=== PATIENT | female | born 1935 | race Caucasian/White ===

== ENCOUNTER 2020-06-26 09:27 | Emergency (ER) | payer MEDICARE, BC, SELFPAY ==
--- NOTE | ~2020-06-26 | XR_ITS ---
XR chest 2V DATE: 06/26/2020 10:16 INDICATION: Shortness of breath. Right arm numbness. TECHNIQUE: PA and lateral views COMPARISON: None FINDINGS: There is mild cardiomegaly. There is aortic calcification and tortuosity. No hilar or media stinal enlargement is evident. No pulmonary infiltrate or consolidation, pleural effusion or pulmonar y vascular congestion or pneumothorax. Moderately large hiatal hernia. Diffuse osteopenia. IMPRESSION: Mild cardiomegaly No active pulmonary disease Reviewed, dictated and finalized at location A.
--- NOTE | ~2020-06-26 | CT_ITS ---
EXAMINATION: CTA chest PE protocol DATE: 06/26/2020 11:00 INDICATION: Shortness of breath TECHNIQUE: Computed tomography angiography (CTA) of the chest was performed with 100 mL Omnipaque-350 intravenous contrast timed to evaluate the pulmonary arteries. Coronal maximum intensity projection 3D-reconstructions were created by the technologist. Automated exposure control and iterative reconst ruction technique were employed. Exam dose: 403.82 mGy-cm total exam DLP. COMPARISON: 06/26/2022 view chest FINDINGS: There is extensive bilateral pulmonary embolism including large saddle embolism on the righ t and extensive thrombus extending into the right upper, middle and lower lobes. There is extensive l eft upper lobe, lingula as well as left lower lobe embolism. No pericardial or pleural effusion. There is inhomogeneous density and enlargement of the thyroid gland. No thoracic aortic aneurysm is evident. No hilar or mediastinal mass lesion or lymphadenopathy. Bilateral predominantly lower lobe dependent atelectasis and/or mild infiltrates. Moderately large hiatal hernia. Normal adrenal glands. IMPRESSION: Extensive bilateral pulmonary emboli I notified emergency room physician Dr. Crowell by telephone on 06/26/2020 at 1110 hours of the extens veto bilateral pulmonary emboli. Reviewed, dictated and finalized at [facility]. Reviewed, dictated and finalized at location A. IMPRESSION: Extensive bilateral pulmonary emboli I notified emergency room physician Dr. Crowell by telephone on 06/26/2020 at 11 10 hours of the extensive bilateral pulmonary emboli.
[2020-06-26 09:29] VITALS: BP 165/95; PULSE 114; RESP 18; TEMP 36.4; O2SAT 92
--- NOTE | 2020-06-26 09:34 | ECG_ITS ---
Measurements Intervals [address] Rate: 115 P: 97 GA: 171 QRS: -57 QRSD: 146 T: 59 QT: 356 QTc: 493 Interpretive Statements SINUS TACHYCARDIA VENTRICULAR PREMATURE COMPLEXES RIGHT BUNDLE BRANCH BLOCK LEFT ANTERIOR FASCICULAR BLOCK ABNORMAL ECG Electronically Signed On 06-26-2020 10:20:28 CDT by German Verma D.O.
[2020-06-26 09:37] VITALS: PULSE 119
[2020-06-26 09:39] VITALS: BP 162/97; PULSE 116; RESP 93; O2SAT 26
[2020-06-26 09:48] LABS: Basophils Absolute Auto 0.1 K/mm3 (0.0-0.1); Basophils Percent Auto 0.7 % (0.2-1.2); Eosinophils Absolute Auto 0.3 K/mm3 (0-0.3); Eosinophils Percent Auto 2.5 % (0-4.4); Hematocrit 38.2 % (37.0-47.0); Hemoglobin 12.5 g/dL (12.0-15.0); Immature Granulocyte Absolute 0.06 K/mm3 (0.00-0.031); Immature Granulocyte Percent A 0.6 % (0-0.5); Lymphocytes Absolute Auto 3.03 K/mm3 (0.9-3.2); Lymphocytes Percent Auto 28.8 % (18.3-44.2); Mean Corpuscular HGB Conc 32.7 g/dl (32-36); Mean Corpuscular Hemoglobin 29.5 pg (26-34); Mean Corpuscular Volume 90.1 fl (80-100); Mean Platelet Volume 10.3 fl (7.4-10.4); Monocytes Absolute Auto 0.6 K/mm3 (0.1-0.6); Monocytes Percent Auto 6.1 % (2.6-8.5); Neutrophils Absolute Auto 6.5 K/mm3 (1.3-6.7); Neutrophils Percent Auto 61.3 % (45.5-73.1); Platelet Count Result 260 k/mm3 (150-375); Red Blood Count 4.24 M/mm3 (4.2-5.4); Red Cell Distribution Width 14.5 % (11.5-14.5); White Blood Count 10.5 K/mm3 (4.5-10.0)
[2020-06-26 09:52] VITALS: BP 146/105; PULSE 108; RESP 18; O2SAT 95
[2020-06-26 10:02] LABS: Anion Gap 8 mmol/L (8-16); Blood Urea Nitrogen 12 mg/dL (7-17); Calcium 8.6 mg/dL (8.4-10.2); Carbon Dioxide 20 mmol/L (22-30); Chloride 110 mmol/L (98-107); Estimated CRCL calculation 53 ml/min; Estimated Glomerular Filt Rate > 60; Glucose 165 mg/dL (65-105); Potassium 3.5 mmol/L (3.4-5.0); Sodium 138 mmol/L (137-145)
[2020-06-26 10:41] LABS: Alveolar/Arterial O2 Gradient 86.7 mmHg; Base Excess ABG -1.6 mEq/l (+/-2.0); Carboxyhemoglobin 0.2 % THb (0-2.0); Device NASAL CANNULA; Fractional Inspired Oxygen 28 %; HCO3 ABG 21.8 mEq/l (22.0-26.0); Methemoglobin ABG 0.2 %THb (0-1.5); Modified Allen's Test Pass; Oxygen Content ABG 17.3 %vol (16.0-22.0); Oxygen Saturation ABG 95.5 % (95.0-100.0); PCO2 ABG 32.9 mmHg (35.0-45.0); PO2 ABG 74.1 mmHg (80.0-100.0); PO2 FiO2 Ratio Arterial Blood 2.65 %; Reduced Hemoglobin 5.6 %THb (0-5.0); Site Drawn LEFT RADIAL; Total Hemoglobin 13.1 g/dL (12.0-18.0); pH ABG 7.439 (7.350-7.450)
[2020-06-26 10:42] LABS: INR 1.1; Prothrombin Time 13.6 Seconds (11.1-14.7)
[2020-06-26 10:43] LABS: Partial Thromboplastin Time 24.7 SECONDS (22.3-36.8)
[2020-06-26 10:48] LABS: Alanine Aminotransferase 81 U/L (4-35); Albumin Level 3.8 g/dL (3.5-5.1); Alkaline Phosphatase 84 U/L (38-126); Aspartate Amino Transferase 83 U/L (14-36); Bilirubin,Total 1.1 mg/dL (0.2-1.3)
--- NOTE | 2020-06-26 11:00 | ED.SOB ---
HPI - SOB/Dyspnea General Chief Complaint: Shortness of Breath/Dyspnea <Chin Guillory PA-C - Last Filed: 06/26/20 12:43> Stated Complaint: SOB <Chin Guillory PA-C - Last Filed: 06/26/20 12:43> Time Seen by Provider: 06/26/20 10:12 <Chin Guillory PA-C - Last Filed: 06/26/20 12:43> Source: patient and family <Chin Guillory PA-C - Last Filed: 06/26/20 12:43> Mode of arrival: ambulatory <Chin Guillory PA-C - Last Filed: 06/26/20 12:43> Limitations: no limitations <Chin Guillory PA-C - Last Filed: 06/26/20 12:43> History of Present Illness HPI Narrative: Patient is a 84-year-old female who presents to emergency department for evaluation of dyspnea that began June 16 patient notes that she began to have her dyspnea at that time worse with activity and ambulation patient on arrival to emergency department is hypoxic denies chest pain or any pain or other symptoms specifically no URI symptoms only dyspnea which has been persistent since June 16. Patient has no past medical history has not seen a physician historically denies tobacco abuse. Patient resting comfortably in the room upon arrival <Chin Guillory PA-C - Last Filed: 06/26/20 12:43> Related Data Home Medications: Home Medications Medication Instructions Recorded Confirmed No Home Medications 06/26/20 06/26/20 <Chin Guillory PA-C - Last Filed: 06/26/20 12:43> Allergies/Adverse Reactions: Allergies Allergy/AdvReac Type Severity Reaction Status Date / Time No Known Allergies Allergy Verified 06/26/20 09:38 <Chin Guillory PA-C - Last Filed: 06/26/20 12:43> Review of Systems Review of Systems: All systems reviewed & are unremarkable except as noted in HPI and below <Chin Guillory PA-C - Last Filed: 06/26/20 12:43> [facility] Social History Social History: Social History Smoking status: Never smoker Gender identity (if verbalized by the patient): Female <Chin Guillory PA-C - Last Filed: 06/26/20 12:43> Exam Narrative: Exam Narrative: GENERAL: Well-appearing, well-nourished, and in no acute distress. HEAD: Normocephalic, atraumatic. EYES: PERRLA and EOMI. ENT: Nares clear, no rhinorrhea or epistaxis. Mucous membranes moist. Oropharynx without tonsillar hypertrophy exudate or other lesions. NECK: Supple. No adenopathy or masses. No carotid bruits or JVD CHEST: Clear to auscultation. No respiratory distress. No wheezes rales or rhonchi HEART: Tachycardic rate regular rhythm. No murmur heard. Normal peripheral pulses. ABDOMEN: Soft, nontender, nondistended, normal active bowel sounds. EXTREMITIES: Normal range of motion. No edema. SKIN: Warm, dry, no rash. NEURO: No focal deficits. Alert and oriented x3. PSYCH: Normal mood and affect. <Chin Guillory PA-C - Last Filed: 06/26/20 12:43> Course Course Emergency Course: Family after discussion with the interventionalists has decided to go with our washing machine installer will be transferred to facility where he can perform the procedure they had [id number] with his colleague patient hemodynamically stable at this time in no distress agreeing with the plan and will be transferred <Chin Guillory PA-C - Last Filed: 06/26/20 12:43> [employer]PERATOR/PA Physician Supervision Patient presenting for evaluation of shortness of breath, chest pain following recent flight from [place]. At the time of assessment, patient is tachycardic, no hypotension, hypoxemic placed on nasal cannula oxygenation at 2 L/min. Given recent travel history, very concerning for possible PE or COVID type symptoms. IV access obtained and labs are drawn. Laboratory results notable for troponin elevation. CT scan called to me by the radiologist Dr. Tavares who states that the patient has bilateral pulmonary emboli as well as a saddle pulmonary embolism. Patient reassesse
[2020-06-26 11:06] LABS: NT Pro B Type Natriuretic Pept 3670 PG/ML (5-100); Troponin I 0.393 ng/mL (0.000-0.034)
[2020-06-26] MEDS: HEPARIN SODIUM 5,000 UNITS/ML VIAL 7500 UNITS IV PUSH (11:19)
[2020-06-26] MEDS: HEPARIN SOD/D5W 100 UNITS/ML 25,000 UNITS/250 ML BAG 13 UNITS IV CONT (11:28)
[2020-06-26 11:31] LABS: Add Urine Microscopic? YES; Appearance Urine Clear (Clear); Bacteria Urine Trace /hpf; Bilirubin Urine Negative (Negative); Blood Urine Negative (Negative); Color Urine Yellow (Yellow); Glucose Urine UA Negative (Negative); Ketones Urine Trace mg/dL (Negative); Leukocyte Esterase Ur 3+ LEU/UL (Negative); Mucus Urine Few /lpf; Nitrate Urine Negative (Negative); Protein Urine 2+ mg/dL (Negative); Squamous Epithelial Cell Urine Many /hpf (Few); WBC Clumps Urine Present /HPF; WBC Urine >75 /hpf
[2020-06-26 11:32] LABS: Specific Grav Ur 1.034 (1.001-1.035)
[2020-06-26 12:12] VITALS: BP 162/104; PULSE 109; RESP 11; O2SAT 92
--- NOTE | 2020-06-26 12:49 | PM.CNCAR ---
Assessment and Plan Assessment and plan (1) Pulmonary emboli: Code(s): I26.99 - Other pulmonary embolism without acute cor pulmonale Status: Acute Assessment and Plan: Pt was found to have large pulmonary embolism. She was started on heparin drip. Pt will benefit from EKOS. She will be transferred to [facility] for further evaluation and treatment. Transfer will be coordinated by Dr. Tyson. (2) Hypoxemia: Code(s): R09.02 - Hypoxemia Status: Acute History of Present Illness History of Present Illness Consult date/time: 06/26/20 12:49 Mrs. Sanchez is a pleasant 84 y/o WF with no significant PMH who presented to [place] ER because of SOB. Pt states that she started to experience SOB on Jun 16 when she travelled to [place]. It was getting gradually worse and she decided to go to ER of [facility] for evaluation. Pt underwent CT of chest which showed large pulmonary embolism. She never had PE or DVT in the past. Pt states that she has not seen any physician for many years. Pt was seen and examined while in ER, chart reviewed, d/w ER physician, pt's family and pt's nurse. Reason For Visit: SOB Review of Systems Review of Systems: All systems reviewed & are unremarkable except as noted in HPI and below Constitutional: Constitutional: Reports as per HPI Eyes: Eyes: Reports as per HPI ENT: Reports system reviewed and no additional complaints, except as documented and Reports as per HPI Cardiovascular: Cardiovascular: Reports as per HPI and Denies chest pain Respiratory: Respiratory: Reports as per HPI and Reports dyspnea Gastrointestinal: Gastrointestinal: Reports as per HPI Genitourinary: Genitourinary: Reports as per HPI Musculoskeletal: Musculoskeletal: Reports as per HPI [facility] Social History Social History Smoking status: Never smoker Gender identity (if verbalized by the patient): Female Meds Home Medications and Allergies Home Medications Medication Instructions Recorded Confirmed Type No Home Medications 06/26/20 06/26/20 History Allergies Allergy/AdvReac Type Severity Reaction Status Date / Time No Known Allergies Allergy Verified 06/26/20 09:38 Vital Signs Vital Signs - 24 hr 06/26/20 09:29 06/26/20 09:37 06/26/20 09:39 Temperature 36.4 C L Pulse Rate 114 H 119 H 116 H Respiratory Rate 18 93 H Blood Pressure 165/95 H 162/97 H Pulse Oximetry 92 26 L 06/26/20 09:52 06/26/20 12:12 Temperature Pulse Rate 108 H 109 H Respiratory Rate 18 11 L Blood Pressure 146/105 H 162/104 H Pulse Oximetry 95 92 Exam Const: General: alert and awake; No acute distress HENMT: Head: normal to inspection and atraumatic Ears: hearing grossly normal bilaterally Face and sinus: normal facial exam Eyes: General: appearance normal, both eyes and all related structures Pupils: Equal, round and reactive pupils present EOM: EOMs intact bilaterally Neck: Neck: normal visual inspection and no JVD Chest: Chest palpation & inspection: normal inspection of the chest Resp: Effort & Inspection: normal respiratory effort and no respiratory distress Auscultation: clear to auscultation bilaterally Cardio: Jugular venous distension: no JVD Rate: regular rate Heart sounds: S1 normal heart sound present, S2 normal heart sound present and no murmurs GI: Inspection: normal to inspection GI Palp: Yes Soft to palpation, No Tenderness to palpation present (GI) and Yes No hepatosplenomegaly present Auscultation: normal bowel sounds Skin: General skin exam: normal color Neuro: Cranial nerves: Yes Equal, round and reactive pupils present Extrem: General: normal to inspection and no clubbing, cyanosis or edema Results Labs and Meds Result diagrams: 06/26/20 09:40 06/26/20 09:40 Lab results: Cardiac Enzymes 06/26/20 Range/Units
--- NOTE | 2020-06-26 12:53 | PC.NURSE ---
[facility] declined transfer [facility] accepted ETA 1400 Trip # [id number]
[2020-06-26 13:46] LABS: Troponin I 0.379 ng/mL (0.000-0.034)
[2020-06-26 13:47] VITALS: BP 157/97; PULSE 107; RESP 18; O2SAT 96
--- NOTE | 2020-06-26 14:18 | PC.NURSE ---
Patient transported [facility] at this time via [facility].
== END 2020-06-26 14:38 | disposition short-term general hospital (02) ==
PROVIDERS: Emergency Medicine Emergency Medical Services; Emergency Provider Emergency Medicine
DX: I26.99 Other pulmonary embolism without acute cor pulmonale (principal); R79.89 Other specified abnormal findings of blood chemistry; R09.02 Hypoxemia; N39.0 Urinary tract infection, site not specified
CPT/HCPCS: 36415; 36600; 51701; 71046; 71275; 80048; 80076; 81001; 82375; 82805; 83050; 83880; 84484; 85025; 85610; 85730; 87086; 93005; 96365; 96366; 96368; 99291; J0696; J1644; Q9967

== ENCOUNTER 2021-01-29 08:26 | Emergency (ER) | payer MEDICARE, BC, SELFPAY ==
[2021-01-29] VITALS (34 sets, daily range): BP systolic 144–182; BP diastolic 79–101; PULSE 52–87; RESP 11–20; TEMP 36.4; O2SAT 95–100
--- NOTE | ~2021-01-29 | US_ITS ---
EXAMINATION: US pelvic complete w TV DATE: 01/29/2021 10:22 INDICATION: Abnormal vaginal bleeding TECHNIQUE: Multiple transabdominal and endovaginal sonographic images of the pelvis were obtained. COMPARISON: None. FINDINGS: The uterus measures 8.1 x 3.8 x 5.3 cm. The endometrial complex measures 2.3 cm. There is a heterogeneous mass within the endometrial canal measuring up to 2.5 cm. There appears to be peripher al blood flow on some images. In addition, there is mobile echogenic material seen in the lower uteri ne segment passing into the endocervical canal.. The left ovary is not visualized however no left adn exal abnormality is seen. The right ovary measures 1.5 x 2.0 x 1.8 cm. There is normal vascular flow in the right ovary. There is no free fluid in the pelvis. IMPRESSION: 1. Thickened endometrial canal with heterogeneous mass. Finding could reflect polyp, malignancy, or h ematoma. Endometrial sampling is recommended. Reviewed, dictated and finalized at location B. IMPRESSION: 1. Thickened endometrial canal with heterogeneous mass. Finding could reflect p olyp, malignancy, or hematoma. Endometrial sampling is recommended.
[2021-01-29 08:53] LABS: Basophils Absolute Auto 0.1 K/mm3 (0.0-0.1); Basophils Percent Auto 0.9 % (0.2-1.2); Eosinophils Absolute Auto 0.3 K/mm3 (0-0.3); Eosinophils Percent Auto 3.7 % (0-4.4); Hematocrit 39.7 % (37.0-47.0); Hemoglobin 12.6 g/dL (12.0-15.0); Immature Granulocyte Absolute 0.02 K/mm3 (0.00-0.031); Immature Granulocyte Percent A 0.2 % (0-0.5); Lymphocytes Absolute Auto 3.56 K/mm3 (0.9-3.2); Lymphocytes Percent Auto 41.6 % (18.3-44.2); Mean Corpuscular HGB Conc 31.7 g/dl (32-36); Mean Corpuscular Hemoglobin 30.5 pg (26-34); Mean Corpuscular Volume 96.1 fl (80-100); Monocytes Absolute Auto 0.8 K/mm3 (0.1-0.6); Monocytes Percent Auto 8.8 % (2.6-8.5); Neutrophils Absolute Auto 3.8 K/mm3 (1.3-6.7); Neutrophils Percent Auto 44.8 % (45.5-73.1); Platelet Count Result 283 k/mm3 (150-375); Red Blood Count 4.13 M/mm3 (4.2-5.4); Red Cell Distribution Width 14.3 % (11.5-14.5); White Blood Count 8.6 K/mm3 (4.5-10.0)
[2021-01-29 09:02] LABS: Alanine Aminotransferase 23 U/L (4-35); Albumin Level 4.1 g/dL (3.5-5.1); Alkaline Phosphatase 85 U/L (38-126); Anion Gap 6 mmol/L (8-16); Aspartate Amino Transferase 31 U/L (14-36); Blood Urea Nitrogen 15 mg/dL (7-17); Calcium 8.7 mg/dL (8.4-10.2); Carbon Dioxide 25 mmol/L (22-30); Chloride 110 mmol/L (98-107); Estimated CRCL calculation 50 ml/min; Estimated Glomerular Filt Rate > 60; Glucose 95 mg/dL (65-105); Potassium 4.5 mmol/L (3.4-5.0); Sodium 141 mmol/L (137-145)
[2021-01-29 09:08] LABS: INR 0.9; Partial Thromboplastin Time 24.1 SECONDS (22.3-36.8); Prothrombin Time 12.4 Seconds (11.1-14.7)
--- NOTE | 2021-01-29 09:22 | PC.NURSE ---
Dr. Ji at bedside for pt assessment.
[2021-01-29 09:51] LABS: Add Urine Microscopic? NO; Appearance Urine Clear (Clear); Bilirubin Urine Negative (Negative); Blood Urine Negative (Negative); Color Urine Yellow (Yellow); Glucose Urine UA Negative (Negative); Ketones Urine Negative (Negative); Leukocyte Esterase Ur Negative LEU/UL (Negative); Nitrate Urine Negative (Negative); Protein Urine Negative (Negative); Specific Grav Ur 1.011 (1.001-1.035); Urobilinogen Urine Negative mg/dL (<2.0)
--- NOTE | 2021-01-29 10:32 | ED.GENADULT ---
HPI - General Adult General Chief complaint: GI Bleed Stated complaint: bloody stools Time Seen by Provider: 01/29/21 08:41 Source: patient Mode of arrival: ambulatory Limitations: no limitations History of Present Illness HPI narrative: This is an 85 year old female who presents for evaluation of possible vaginal bleeding vs hematuria. She noticed this morning she was passing large amounts of blood in the toilet when she was urinating. She thinks it may be coming from her vagina but she is not sure. She denies frequent urination, abdominal pain, dysuria. She denies having a bowel movement or passing clots. She was taking Eliquis for PE but her clinical leader stopped her Eliquis 6 days ago. She does take a full strength aspirin. Related Data Home Medications Medication Instructions Recorded Confirmed atorvastatin 40 mg tablet 40 mg PO DAILY 07/20/20 01/29/21 ferrous sulfate 325 mg (65 mg 325 mg PO DAILY 07/20/20 01/29/21 iron) tablet lisinopril 10 mg tablet 10 mg PO DAILY 07/20/20 01/29/21 metoprolol succinate 50 mg capsule 50 mg PO DAILY 07/20/20 01/29/21 sprinkle, ext. release 24 hr aspirin 325 mg tablet 325 mg PO DAILY 01/26/21 01/29/21 Allergies Allergy/AdvReac Type Severity Reaction Status Date / Time No Known Allergies Allergy Verified 01/29/21 08:36 Review of Systems Review of Systems: All systems reviewed & are unremarkable except as noted in HPI and below PMFSH Past Medical History Medical History (Updated 01/29/21 @ 12:29 by Charu Ji MD) High blood pressure Hx of blood clots in lung SOB (shortness of breath) Stroke Surgical History Surgical History FH: total knee replacement both History of appendectomy Family History Family History Father Heart disease Mother Heart disease Sibling Hypertension Social History Social History Smoking status: Never smoker Gender identity (if verbalized by the patient): Female Exam Const: General: no acute distress and alert Orientation/consciousness: patient oriented x3 Eyes: EOM: EOMs intact bilaterally Resp: Effort & Inspection: normal respiratory effort and no retractions Auscultation: clear to auscultation bilaterally Cardio: Rate: regular rate Rhythm: regular rhythm Heart sounds: no murmurs GI: GI Palp: Yes Soft to palpation, No Tenderness to palpation present (GI) and No Guarding due to palpation present (GI) Auscultation: normal bowel sounds : Speculum Exam - Vagina: vaginal bleeding (dark blood in vaginal vault, no clots) Speculum Exam - Cervix: Cervical os closed Back/Spine/Pelvis: Back: no CVA tenderness Skin: General skin exam: normal color Rashes: no rashes Neuro: General: patient oriented x3, moves all extremities and CN's II-XI intact bilaterally Psych: Mental Status: mental status grossly normal Affect: normal affect Course Reevaluation(s) Reevaluation #1: PAtient states she did not see any blood when she went to restroom . I reviewed labs and ultrasound with patient and family. They understand that her labs are unremarkable but she will need evaluation of abnormal pelvic ultrasound with gynecology. She is stable for discharge. Date: 01/29/21 Time: 12:24 Vital Signs Vital signs: Vital Signs Temperature 97.6 F 01/29/21 08:32 Pulse Rate 78 01/29/21 08:32 Respiratory Rate 18 01/29/21 08:32 Blood Pressure 182/93 H 01/29/21 08:32 Pulse Oximetry 99 01/29/21 08:32 Temperature 97.6 F 01/29/21 08:32 Pulse Rate 66 01/29/21 12:51 Respiratory Rate 18 01/29/21 12:51 Blood Pressure 169/82 H 01/29/21 12:51 Pulse Oximetry 99 01/29/21 12:51 Medical Decision Making Vital Signs Vital Signs: Vital Signs Temperature 97.6 F 01/29/21 08:32 Pulse Rate 78
== END 2021-01-29 12:52 | disposition home or self-care (01) ==
PROVIDERS: Emergency Provider General Practice; PCP Internal Medicine
DX: N93.9 Abnormal uterine and vaginal bleeding, unspecified (principal); R93.89 Abnormal findings on diagnostic imaging of other specified body structures; I10 Essential (primary) hypertension; Z86.73 Personal history of transient ischemic attack (TIA), and cerebral infarction without residual deficits; Z79.82 Long term (current) use of aspirin
CPT/HCPCS: 36415; 51701; 76830; 76856; 80053; 81003; 85025; 85610; 85730; 86850; 86900; 86901; 99284

== ENCOUNTER 2022-04-18 11:07 | Emergency (ER) | payer MEDICARE, BC, SELFPAY ==
[2022-04-18] VITALS (9 sets, daily range): BP systolic 149–185; BP diastolic 80–105; PULSE 80–96; RESP 16–20; TEMP 36.4; O2SAT 93–99
--- NOTE | ~2022-04-18 | CT_ITS ---
EXAMINATION: CTA chest PE protocol DATE: 04/18/2022 12:36 INDICATION: Shortness of breath, palpitations. History of pulmonary embolus. TECHNIQUE: Computed tomography angiography (CTA) of the chest was performed with 100 mL Omnipaque-350 intravenous contrast timed to evaluate the pulmonary arteries. Coronal maximum intensity projection 3D-reconstructions were created by the technologist. Automated exposure control and iterative reconst ruction technique were employed. Exam dose: 304.15 mGy-cm total exam DLP. COMPARISON: 06/26/2020 CT pulmonary scan FINDINGS: The examination is diagnostic, with bilateral saddle emboli can with bilateral upper lower lobe and middle lobe emboli. Thyroid goiter. No thoracic or aortic aneurysm or dissection is detected. There is cardiomegaly. No pericardial or pl eural effusion. No hilar or mediastinal mass lesion or lymphadenopathy. Large hiatal hernia. Normal morphology of the adrenal glands. IMPRESSION: Extensive bilateral pulmonary emboli including bilateral saddle emboli Dr. Tavares telephoned the report on 04/2022 1253 hours to emergency room physician Dr. Dallas. Reviewed, dictated and finalized at [facility]. Reviewed, dictated and finalized at location A. IMPRESSION: Extensive bilateral pulmonary emboli including bilateral saddle em boli Dr. Tavares telephoned the report on 04/2022 1253 hours to emergency room physicia n Dr. Dallas.
--- NOTE | 2022-04-18 11:09 | ECG_ITS ---
Measurements Intervals [place] Rate: 92 P: 86 GA: 172 QRS: -30 QRSD: 146 T: 58 QT: 395 QTc: 489 Interpretive Statements SINUS RHYTHM RIGHT BUNDLE BRANCH BLOCK ABNORMAL ECG Electronically Signed On 04-18-2022 15:16:01 CDT by German Verma D.O.
[2022-04-18 11:22] LABS: Basophils Absolute Auto 0.1 K/mm3 (0.0-0.1); Eosinophils Absolute Auto 0.2 K/mm3 (0-0.3); Eosinophils Percent Auto 2.2 % (0-4.4); Hematocrit 39.2 % (37.0-47.0); Hemoglobin 12.5 g/dL (12.0-15.0); Immature Granulocyte Absolute 0.02 K/mm3 (0.00-0.031); Immature Granulocyte Percent A 0.2 % (0-0.5); Lymphocytes Absolute Auto 1.72 K/mm3 (0.9-3.2); Lymphocytes Percent Auto 20.5 % (18.3-44.2); Mean Corpuscular HGB Conc 31.9 g/dl (32-36); Mean Corpuscular Hemoglobin 29.8 pg (26-34); Mean Corpuscular Volume 93.3 fl (80-100); Mean Platelet Volume 9.8 fl (7.4-10.4); Monocytes Absolute Auto 0.7 K/mm3 (0.1-0.6); Monocytes Percent Auto 8.6 % (2.6-8.5); Neutrophils Absolute Auto 5.7 K/mm3 (1.3-6.7); Neutrophils Percent Auto 67.5 % (45.5-73.1); Platelet Count Result 277 k/mm3 (150-375); Red Cell Distribution Width 14.4 % (11.5-14.5); White Blood Count 8.4 K/mm3 (4.5-10.0)
[2022-04-18 11:31] LABS: Alanine Aminotransferase 14 U/L (6-35); Albumin Level 4.3 g/dL (3.5-5.1); Alkaline Phosphatase 85 U/L (38-126); Anion Gap 4 mmol/L (8-16); Aspartate Amino Transferase 24 U/L (14-36); Bilirubin,Total 1.6 mg/dL (0.2-1.3); Blood Urea Nitrogen 13 mg/dL (7-17); Calcium 8.9 mg/dL (8.4-10.2); Carbon Dioxide 25 mmol/L (22-30); Chloride 109 mmol/L (98-107); Estimated CRCL calculation 44 ml/min; Estimated Glomerular Filt Rate 59; Glucose 107 mg/dL (65-110); Potassium 4.3 mmol/L (3.4-5.0); Sodium 138 mmol/L (137-145)
--- NOTE | 2022-04-18 12:17 | PC.NURSE ---
Pt not able to urinate at this time
--- NOTE | 2022-04-18 12:30 | ED.WEAKNESS ---
HPI - Weakness General Chief complaint: Weakness Stated complaint: weakness Time Seen by Provider: 04/18/22 11:56 Source: patient History of Present Illness HPI Narrative: Patient presents with nonspecific weakness. His first been feeling weak over the past few days. She describes it as a sensation of feeling like her legs are heavy and she feels like her heart rate jumps up with physical activity. Denies any chest pain or shortness of breath denies any lightheadedness or dizziness. Denies any recent nausea vomiting or diarrhea denies any abdominal pain. Reports she does feel not like she supposed to . She denies any urinary symptoms. She does report a history of PEs after a long travel and does take aspirin on a regular basis. Reports today symptoms feel different than her prior PE. Related Data Home Medications Medication Instructions Recorded Confirmed atorvastatin 40 mg tablet 40 mg PO DAILY 07/20/20 02/09/22 ferrous sulfate 325 mg (65 mg 325 mg PO DAILY 07/20/20 02/09/22 iron) tablet lisinopril 10 mg tablet 10 mg PO DAILY 07/20/20 02/09/22 metoprolol succinate 50 mg capsule 50 mg PO DAILY 07/20/20 02/09/22 sprinkle, ext. release 24 hr aspirin 325 mg tablet 81 mg PO DAILY 01/26/21 02/09/22 Allergies Allergy/AdvReac Type Severity Reaction Status Date / Time No Known Allergies Allergy Verified 04/18/22 11:33 Review of Systems Review of Systems: CONSTITUTIONAL: Denies fever, chills, or sweats. EYES: Denies visual changes, redness, or discharge. ENT: Denies rhinorrhea, congestion, sore throat, or otalgia. CARDIOVASCULAR: Denies chest pain, palpitations, or edema. RESPIRATORY: Denies cough or dyspnea. GASTROINTESTINAL: Denies abdominal pain, nausea, vomiting, or diarrhea. GENITOURINARY: Denies dysuria or hematuria. SKIN: Denies rash or itching. MUSCULOSKELETAL: Denies back pain, joint pain, or myalgia. NEUROLOGIC: Denies headache, numbness, dizziness, or weakness. PSYCHIATRIC: Denies anxiety or depression. All systems reviewed & are unremarkable except as noted in HPI and below PMFSH Past Medical History Medical History Heart attack High blood pressure History of pulmonary embolism Hx of blood clots in lung SOB (shortness of breath) Stroke Surgical History Surgical History FH: total knee replacement both History of appendectomy Family History Family History Father Heart disease Mother Heart disease Sibling Hypertension Social History Social History Smoking status: Never smoker Gender identity (if verbalized by the patient): Female Exam Narrative: GENERAL: Well-appearing, well-nourished, and in no acute distress. HEAD: Normocephalic, atraumatic. EYES: PERRLA and EOMI. ENT: Nares clear, no rhinorrhea or epistaxis. Mucous membranes moist. NECK: Supple. No masses. No JVD CHEST: Clear to auscultation. No respiratory distress. No wheezes rales or rhonchi HEART: Regular rate and rhythm. No murmur heard. Normal peripheral pulses. ABDOMEN: Soft, nontender, nondistended, normal active bowel sounds. EXTREMITIES: Normal range of motion. No edema. SKIN: Warm, dry, no rash. NEURO: No focal deficits. Alert and oriented x3. PSYCH: Normal mood and affect. Course Reevaluation(s) Reevaluation #1: Patient updated on work-up thus far. Patient does have bilateral saddle PEs overall looks clinically well. She is previously required thrombectomy and June 2020 at [facility]. Patient would likely benefit from similar procedure. We will reach out to the [facility] healthcare system for transfer. Patient is comfortable with transfer plan. BNP and troponin were added on as well as heparin drips. Date: 04/18/22 Time: 13:32 Reevaluation #2: Duncan
[2022-04-18 13:22] LABS: Mucus Urine Rare /lpf; RBC Urine 0-2 /hpf (0-2); Squamous Epithelial Cell Urine Many /hpf (Few); Transitional Epi Cells Urine Rare /hpf (None Seen); WBC Urine 16-20 /hpf
[2022-04-18 13:31] LABS: Appearance Urine Clear (Clear); Bilirubin Urine Negative (Negative); Blood Urine Negative (Negative); Color Urine Yellow (Yellow); Glucose Urine UA Negative (Negative); Ketones Urine Trace mg/dL (Negative); Leukocyte Esterase Ur 2+ LEU/UL (Negative); Nitrate Urine Negative (Negative); Protein Urine Negative (Negative); Urobilinogen Urine 0.2 mg/dL (<2.0); pH Urine 6.5 (5.0-9.0)
[2022-04-18 13:32] LABS: Add Urine Microscopic? YES
[2022-04-18] MEDS: HEPARIN SODIUM 5,000 UNITS/ML VIAL 5500 UNITS IV PUSH (13:43)
[2022-04-18] MEDS: HEPARIN SOD/D5W 100 UNITS/ML 25,000 UNITS/250 ML BAG 13 UNITS IV CONT (13:44)
[2022-04-18 14:30] LABS: NT Pro B Type Natriuretic Pept 1470 pg/mL (5-100)
[2022-04-18 14:40] LABS: Partial Thromboplastin Time 28.6 SECONDS (22.3-36.8); Prothrombin Time 12.8 Seconds (11.1-14.7)
[2022-04-18 14:56] LABS: SARS-CoV-2 RNA PCR Negative
--- NOTE | 2022-04-18 18:38 | PC.NURSE ---
ohara update 1641, eta 1830, update at 1808, eta 1930.
--- NOTE | 2022-04-18 19:45 | PC.NURSE ---
called [facility] for ETA update at 2015
--- NOTE | 2022-04-18 20:35 | PC.NURSE ---
[facility] here
== END 2022-04-18 20:51 | disposition short-term general hospital (02) ==
PROVIDERS: Emergency Medicine; Emergency Provider Emergency Medicine; PCP Internal Medicine
DX: I26.99 Other pulmonary embolism without acute cor pulmonale (principal); Z20.822 Contact with and (suspected) exposure to COVID-19; I25.2 Old myocardial infarction; I10 Essential (primary) hypertension; Z86.711 Personal history of pulmonary embolism; Z86.73 Personal history of transient ischemic attack (TIA), and cerebral infarction without residual deficits; Z96.653 Presence of artificial knee joint, bilateral; Z79.82 Long term (current) use of aspirin; I45.10 Unspecified right bundle-branch block
CPT/HCPCS: 36415; 71275; 80053; 81001; 83880; 84484; 85025; 85610; 85730; 87086; 87088; 93005; 96365; 96366; 99285; C9803; J1644; Q9967; U0003; U0005

== ENCOUNTER 2023-05-05 09:52 | Inpatient (IN) | payer MEDICARE, BC, SELFPAY ==
[2023-05-05] VITALS (29 sets, daily range): BP systolic 121–160; BP diastolic 52–92; PULSE 68–94; RESP 12–21; TEMP 36.2–37; O2SAT 95–100; BMI 31.1
--- NOTE | ~2023-05-05 | US_ITS ---
EXAMINATION: US biopsy liver DATE: 05/10/2023 13:28 INDICATION: Hepatic mass concerning for metastatic disease TECHNIQUE: The procedure including the risks and benefits was discussed with the patient. Risks discu ssed included bleeding and infection. The patient understood the risks and agreed to proceed. The sk in overlying the liver was prepped and draped in usual sterile fashion. Anesthetic was administered with 1% lidocaine subcutaneously. An 18 gauge core biopsy needle was advanced under continuous ultra sound observation to the lesion of interest. 3 core biopsy specimens were obtained. The needle was removed and the entry site was cleaned and dressed. Post procedure ultrasound demonstrated no hemorr jennifer. FINDINGS: Ultrasound images demonstrate an approximately 2.5 cm isoechoic to slightly hyperechoic mas s with hypoechoic halo in the caudal right hepatic lobe corresponds in size and location to the lesio n identified on prior CT. Subsequent images demonstrate the biopsy needle advanced through the mass. IMPRESSION: 1. Successful Ultrasound-guided biopsy of a 2.5 cm right hepatic mass. Reviewed, dictated and finalized at location A.
--- NOTE | ~2023-05-05 | CT_ITS ---
Clinical Indication: Cecal mass CT Scan of the Chest, Abdomen, and Pelvis with Contrast: Technique: Contiguous sections were acquired throughout the chest, abdomen, and pelvis after intraven ous administration of 100 cc of Omnipaque 350. Dose reduction technique was used on this scan by uti lizing automated exposure control and iterative reconstruction technique. The dose-length product (DL P) was 1029.64 mGy-cm. COMPARISON: 04/18/2022 Findings: Multiple small thyroid nodules are present, predominantly hypodense/cystic in appearance. There is no evidence of any significant mediastinal, hilar or axillary lymphadenopathy. The mediastin al soft tissues and vascular structures appear normal. Large hiatal hernia present, containing most o f the stomach. There is no evidence of pleural or pericardial effusion. The lungs are clear. No pulmonary nodules or infiltrates are noted. There is a 2.5 cm hypodense right hepatic lobe mass, consistent with metastasis (axial image 109). Th e spleen, pancreas, gallbladder, adrenals and kidneys are within normal limits. No evidence of aorti c aneurysm. No lymphadenopathy. Suspected ill-defined cecal mass measuring approximately 5.0 x 4.1 cm (coronal image 38). No bowel ob struction evident. No abscess or free air. Urinary bladder is unremarkable. No adnexal mass seen. No ascites. Impression: Suspected 5.0 x 4.1 cm cecal mass, as detailed above, which would be suspicious for adenocarcinoma. C onsider colonoscopy for tissue sampling, if not already performed. 2.5 cm right hepatic lobe mass, highly suspicious for metastasis. Consider tissue sampling to establi sh a histologic diagnosis, as clinically indicated. Large hiatal hernia, containing most of the stomach. Reviewed, dictated and finalized at location . Impression: Suspected 5.0 x 4.1 cm cecal mass, as detailed above, which would be suspicious for adenocarcinoma. Consider colonoscopy for tissue sampling, if not already p erformed. 2.5 cm right hepatic lobe mass, highly suspicious for metastasis. Consider tiss ue sampling to establish a histologic diagnosis, as clinically indicated. Large hiatal hernia, containing most of the stomach.
--- NOTE | 2023-05-05 10:23 | ED.GENADULT ---
HPI - General Adult General Chief complaint: Recheck/Abnormal Lab/Rx Stated complaint: Low HGB Time Seen by Provider: 05/05/23 10:13 Source: patient Mode of arrival: ambulatory Limitations: no limitations History of Present Illness HPI narrative: This is an 87-year-old female with PMH of PE, HLD who presents to the ED for evaluation of hemoglobin of 5.9 drawn by PCP today. She reports fatigue and general malaise. Denies any chest pain, shortness of breath, or hemoptysis. She does currently take Eliquis for PE diagnosed last year. States that she has had several years of intermittent bright red rectal bleeding with hemorrhoids in the past. Denies dark stools or melena. Denies any vomiting or hematemesis. She has been working with her PCP on possible iron deficiency but was taken off of her iron pills a couple of months ago. Denies any further complaints. Related Data Home Medications Medication Instructions Recorded Confirmed atorvastatin 40 mg tablet 40 mg PO DAILY 07/20/20 02/19/23 ferrous sulfate 325 mg (65 mg 325 mg PO DAILY 07/20/20 02/19/23 iron) tablet apixaban 5 mg tablet (Eliquis) 5 mg PO BID 05/03/22 02/19/23 metoprolol succinate 50 mg capsule 25 mg PO DAILY 05/03/22 02/19/23 sprinkle, ext. 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 Code status: Full code. Smoking status: Never smoker Second hand tobacco smoke exposure: No Alcohol intake: never Substance use: never Lack of Transportation: No Lack of Food: Never True Current Housing: I Have Housing Concerned About Future Housing: No Difficulty Paying Gas/Electric Bills: No Difficulty Paying for Meds: No Currently Unemployed: No Education: High School Diploma/GED Difficulty w/ Childcare or Family Care: No Spiritual care concerns: No Exam Narrative: GENERAL: Well-appearing, well-nourished, and in no acute distress. HEAD: Normocephalic, atraumatic. EYES: PERRLA and EOMI. ENT: Nares clear, no rhinorrhea or epistaxis. Mucous membranes moist. Oropharynx without tonsillar hypertrophy exudate or other lesions. NECK: Supple. No adenopathy or masses. CHEST: No respiratory distress. Clear to auscultation. No wheezes rales or rhonchi HEART: Regular rate and rhythm. No murmur heard. Normal peripheral pulses. ABDOMEN: Soft, nontender, nondistended, normal active bowel sounds. MSK: Normal range of motion. No edema. SKIN: Warm, dry, no rash. NEURO: Alert and oriented x3. No focal deficits. PSYCH: Normal mood and affect. Rectal exam performed with female RN rose grower present: Hemoccult test negative. External hemorrhoids noted. No bleeding. No pain with exam. Course Vital Signs Vital signs: Vital Signs Pulse Rate 80 05/05/23 10:00 Respiratory Rate 21 H 05/05/23 10:00 Blood Pressure 139/78 05/05/23 10:00 Pulse Oximetry 99 05/05/23 10:00 Temperature 98 F 05/05/23 17:09 Pulse Rate 83 05/05/23 17:09 Respiratory Rate 18 05/05/23 17:09 Blood Pressure 153/77 H 05/05/23 17:09 Pulse Oximetry 99 05/05/23 17:09 Oxygen Delivery Room Air 05/05/23 14:28
[2023-05-05 10:26] LABS: Basophils Absolute Auto 0.1 K/mm3 (0.0-0.1); Basophils Percent Auto 1.2 % (0.2-1.2); Eosinophils Absolute Auto 0.3 K/mm3 (0-0.3); Eosinophils Percent Auto 3.1 % (0-4.4); Hematocrit 21.2 % (37.0-47.0); Immature Granulocyte Absolute 0.02 K/mm3 (0.00-0.031); Immature Granulocyte Percent A 0.2 % (0-0.5); Lymphocytes Absolute Auto 1.79 K/mm3 (0.9-3.2); Lymphocytes Percent Auto 20.7 % (18.3-44.2); Mean Corpuscular HGB Conc 28.3 g/dl (32-36); Mean Corpuscular Hemoglobin 21.9 pg (26-34); Mean Corpuscular Volume 77.4 fl (80-100); Mean Platelet Volume 9.5 fl (7.4-10.4); Monocytes Absolute Auto 0.9 K/mm3 (0.1-0.6); Monocytes Percent Auto 10.8 % (2.6-8.5); Neutrophils Absolute Auto 5.5 K/mm3 (1.3-6.7); Platelet Count Result 441 k/mm3 (150-375); Red Blood Count 2.74 M/mm3 (4.2-5.4); Red Cell Distribution Width 17.5 % (11.5-14.5); White Blood Count 8.6 K/mm3 (4.5-10.0)
[2023-05-05 10:36] LABS: INR 1.2; Prothrombin Time 15.8 Seconds (11.1-14.7)
[2023-05-05 10:37] LABS: Partial Thromboplastin Time 28.9 SECONDS (22.3-36.8)
[2023-05-05 10:40] LABS: Alanine Aminotransferase 18 U/L (6-35); Albumin Level 3.6 g/dL (3.5-5.1); Alkaline Phosphatase 65 U/L (38-126); Anion Gap 7 mmol/L (8-16); Aspartate Amino Transferase 24 U/L (14-36); Bilirubin,Total 0.7 mg/dL (0.2-1.3); Blood Urea Nitrogen 14 mg/dL (7-17); Calcium 8.6 mg/dL (8.4-10.2); Carbon Dioxide 25 mmol/L (22-30); Chloride 106 mmol/L (98-107); Estimated CRCL calculation 54 ml/min; Estimated Glomerular Filt Rate > 60; Glucose 103 mg/dL (65-110); Potassium 4.3 mmol/L (3.4-5.0); Sodium 138 mmol/L (137-145)
[2023-05-05 10:57] LABS: Anisocytosis 2+ (NORMAL); Hypochromasia 1+ (NORMAL); Large Platelets Present; Microcytosis 2+ (NORMAL); Platelet Estimate Increased (Adequate)
[2023-05-05 10:59] LABS: Schistocytes None Seen (NORMAL)
[2023-05-05] MEDS: SODIUM CHLORIDE 0.9% IV 250 ML 30 ML IV CONT ×2 (12:20→16:14)
[2023-05-05 14:16] LABS: Ferritin 7.22 ng/mL (11.1-264)
--- NOTE | 2023-05-05 14:21 | PM.IMHP ---
H&P: HPI History of Present Illness Date/Time: 05/05/23 15:00 Chief Complaint: Abnormal labs. 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 She had a routine wellness visit in February and labs at that time showed that her hemoglobin had dropped from 12.5 to 9.1. Anemia studies were ordered and her iron level was elevated at 296 and she was told to stop taking her ferrous sulfate supplementation which she had been on since last fall. The last week or so she has become fatigued and weak and she had labs drawn yesterday which showed that her hemoglobin was 5.9 and she was directed to the ED. hemoglobin and hematocrit today were 6.0 in 21.2% respectively and she is being admitted in this setting for transfusion and further evaluation. Stool was brown and Hemoccult negative on rectal exam done in the ED; external hemorrhoids were noted. On rare occasions she will notice a small amount of bright red blood on the toilet tissue following a hard bowel movement but nothing of significance. She denies epistaxis, gingival bleeding, hemoptysis, hematemesis, hematuria, and melena. No recent change in diet. She denies diarrhea and if anything she has occasional constipation. No abdominal pain, epigastric pain, bloating, or belching. Review of Systems Review of Systems: Twelve systems were reviewed and are negative except for as per HPI. [facility] Past Medical History Medical History (Updated 05/05/23 @ 20:33 by Linn Kerr PA-C) Chronic anticoagulation Hyperlipidemia Hypertension Iron deficiency anemia Pulmonary embolism (06/26/20) June 2020 and April 2022. 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 Code status: Full code. Smoking status: Never smoker Second hand tobacco smoke exposure: No Alcohol intake: never Substance use: never Lack of Transportation: No Lack of Food: Never True Current Housing: I Have Housing Concerned About Future Housing: No Difficulty Paying Gas/Electric Bills: No Difficulty Paying for Meds: No Currently Unemployed: No Education: High School Diploma/GED Difficulty w/ Childcare or Family Care: No Spiritual care concerns: No Meds Home Medications and Allergies Home Medications Medication Instructions Recorded Confirmed Type atorvastatin 40 mg tablet 40 mg PO HS 07/20/20 05/05/23 History apixaban 5 mg tablet (Eliquis) 5 mg PO BID 05/03/22 05/05/23 History cyanocobalamin (vitamin B-12) 1,000 mcg PO DAILY 05/05/23 05/05/23 History 1,000 mcg tablet (Vitamin B-12) metoprolol succinate 25 mg 25 mg PO DAILY 05/05/23 05/05/23 History tablet,extended release 24 hr Allergies Allergy/AdvReac Type Severity Reaction Status Date / Time No Known Allergies Allergy Verified 05/05/23 10:06 Vital Signs Vital Signs - 24 hr 05/05/23 10:02 05/05/23 10:09 05/05/23 10:11 Temperature Pulse Rate 70 70 94 Respiratory Rate 12 Blood Pressure 139/78 131/52 L 138/68 Pulse Oximetry 99 Oxygen Delivery Room Air 05/05/23 10:13 05/05/23 12:13 05/05/23 12:29 Temperature 98.4 F 98.6 F Pulse Rate 91 94 73 Respiratory Rate 16 16 Blood Pressure 141/76 H 138/69 146/78 H Pulse Oximetry 100 98 Oxygen Delivery 07
--- NOTE | 2023-05-05 18:16 | ADMGEN ---
This patient, Leisa Sanchez, was admitted to 3 [facility] Surg Room 320-01. Patient/family oriented to hospital policies and general routines including ID bracelet, bed and alarms, visiting hours, pain management, procedures, bathroom and other care routines, personal items, smoking policy, room service/diet, and visiting hours. Information on how to activate the Rapid Response Team has been discussed. Patient/Family are encouraged to report perceived risks to care and to ask questions if they do not understand what they are told or what they should do.
[2023-05-05 20:12] LABS: Hematocrit 26.3 % (37.0-47.0)
[2023-05-05] MEDS: METOPROLOL SUCCINATE EXT REL 12.5 MG TABCR PO (21:36)
[2023-05-05] MEDS: ATORVASTATIN 40 MG TABLET PO (21:36)
[2023-05-06 05:53] VITALS: BP 129/61; PULSE 69; RESP 16; TEMP 36.1; O2SAT 97
[2023-05-06 07:20] LABS: Hematocrit 25.2 % (37.0-47.0); Hemoglobin 7.6 g/dL (12.0-15.0); Mean Corpuscular HGB Conc 30.2 g/dl (32-36); Mean Corpuscular Hemoglobin 24.3 pg (26-34); Mean Corpuscular Volume 80.5 fl (80-100); Mean Platelet Volume 9.7 fl (7.4-10.4); Platelet Count Result 382 k/mm3 (150-375); Red Blood Count 3.13 M/mm3 (4.2-5.4); Red Cell Distribution Width 18.2 % (11.5-14.5); White Blood Count 7.1 K/mm3 (4.5-10.0)
[2023-05-06 07:27] LABS: Anion Gap 4 mmol/L (8-16); Blood Urea Nitrogen 10 mg/dL (7-17); Calcium 8.2 mg/dL (8.4-10.2); Carbon Dioxide 27 mmol/L (22-30); Chloride 108 mmol/L (98-107); Estimated CRCL calculation 54 ml/min; Estimated Glomerular Filt Rate > 60; Glucose 92 mg/dL (65-110); Magnesium 2.3 mg/dL (1.6-2.3); Sodium 139 mmol/L (137-145)
[2023-05-06 08:21] VITALS: PULSE 76
[2023-05-06] MEDS: FERROUS SULFATE 325 MG TABLET DR PO ×2 (08:21→17:05)
[2023-05-06] MEDS: METOPROLOL SUCCINATE EXT REL 25 MG TABCR PO (08:21)
[2023-05-06] MEDS: CYANOCOBALAMIN 1,000 MCG TABLET 1000 MCG PO (08:21)
[2023-05-06 14:00] VITALS: BP 132/68; PULSE 77; RESP 18; TEMP 36.2; O2SAT 99
[2023-05-06 14:47] VITALS: BP 123/64; BP 132/68; BP 138/66
[2023-05-06 16:07] LABS: Hematocrit 28.4 % (37.0-47.0); Hemoglobin 8.5 g/dL (12.0-15.0)
--- NOTE | 2023-05-06 16:48 | WPDPN ---
Progress Note: A&P Assessment and Plan (1) Symptomatic anemia: Code(s): D64.9 - Anemia, unspecified Status: Acute (2) Iron deficiency anemia: Code(s): D50.9 - Iron deficiency anemia, unspecified Status: Acute (3) Chronic anticoagulation: Code(s): Z79.01 - retirement (current) use of anticoagulants Status: Acute (4) Hypertension: Code(s): I10 - Essential (primary) hypertension Status: Acute (5) Hyperlipidemia: Code(s): E78.5 - Hyperlipidemia, unspecified Status: Acute Plan The patient presented to the emergency department with symptomatic anemia after she was found to have a low hemoglobin on labs drawn yesterday for evaluation of fatigue. Labs, imaging, EKG, and all reports were personally reviewed. She had previously been on iron supplementations however her iron levels were elevated on labs done in February and she was told to stop taking ferrous sulfate. The last couple of weeks she has been feeling fatigued and her iron levels yesterday were less than 10 and she was profoundly anemic as above. She will be transfused 2 units packed red blood cells and will repeat H&H thereafter. Ferritin level pending and depending on that we would consider Venofer infusion. She is on chronic anticoagulation given to unprovoked and rather large pulmonary emboli, the last being in April 2022. Presumably she has occult GI blood loss though her stool was brown and Hemoccult negative on rectal exam today done in the ED. External hemorrhoids were noted though she reports that they very rarely bleed small amounts if and when she has to strain for a bowel movement. Hold apixaban for now. Check stool for occult blood. Dr. Wells has been consulted and his input is appreciated. She would probably benefit from GI referral as an outpatient for upper and lower endoscopy. Vital signs have been stable. Her home medications will be reviewed and resumed as appropriate. 05/06/2023 interval history; upon arrival patient hgb was 6 and patient was given 2 units of PRBC and her Hgb was up to 8 and repeat hgb this morining trended down to 7.6 concerning for on going bleeding, patient is chronically anticoagulated with Eliquis for chronic PE which is on hold, patient is clinically stable will repeat the hemoglobin, will be seen GI and Hematology and further recommendation to follow Subjective Date/time seen: 05/06/23 16:48 Interval history: Abnormal labs. 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 She had a routine wellness visit in February and labs at that time showed that her hemoglobin had dropped from 12.5 to 9.1. Anemia studies were ordered and her iron level was elevated at 296 and she was told to stop taking her ferrous sulfate supplementation which she had been on since last fall. The last week or so she has become fatigued and weak and she had labs drawn yesterday which showed that her hemoglobin was 5.9 and she was directed to the ED. hemoglobin and hematocrit today were 6.0 in 21.2% respectively and she is being admitted in this setting for transfusion and further evaluation. Stool was brown and Hemoccult negative on rectal exam done in the ED; external hemorrhoids were noted. On rare occasions she will notice a small amount of bright red blood on the toilet tissue following a hard bowel movement but nothing of significance. She denies epistaxis, gingival bleeding, hemoptysis, hematemesis, hematuria, and melena. No recent change in diet. She denies diarrhea and if anything she has occasional constipation. No abdominal pain, epigastric pain, bloating, or belching. 05/06/2023 interval history; upon arrival patient hgb was 6 and patient was given 2 units
[2023-05-06 20:00] VITALS: BP 124/64
[2023-05-06] MEDS: ATORVASTATIN 40 MG TABLET PO (20:28)
[2023-05-06 22:00] VITALS: BP 128/60; PULSE 81; RESP 20; TEMP 36.3; O2SAT 96
[2023-05-07] VITALS (8 sets, daily range): BP systolic 124–149; BP diastolic 60–76; PULSE 72–89; RESP 16–20; TEMP 36–36.6; O2SAT 97–98
[2023-05-07 07:12] LABS: Anion Gap 5 mmol/L (8-16); Blood Urea Nitrogen 11 mg/dL (7-17); Calcium 8.2 mg/dL (8.4-10.2); Carbon Dioxide 26 mmol/L (22-30); Chloride 107 mmol/L (98-107); Estimated CRCL calculation 55 ml/min; Estimated Glomerular Filt Rate > 60; Glucose 92 mg/dL (65-110); Magnesium 2.3 mg/dL (1.6-2.3); Potassium 3.7 mmol/L (3.4-5.0); Sodium 138 mmol/L (137-145)
[2023-05-07 07:14] LABS: Basophils Absolute Auto 0.1 K/mm3 (0.0-0.1); Basophils Percent Auto 1.4 % (0.2-1.2); Eosinophils Absolute Auto 0.4 K/mm3 (0-0.3); Eosinophils Percent Auto 5.5 % (0-4.4); Hematocrit 25.6 % (37.0-47.0); Hemoglobin 7.7 g/dL (12.0-15.0); Immature Granulocyte Absolute 0.03 K/mm3 (0.00-0.031); Immature Granulocyte Percent A 0.5 % (0-0.5); Lymphocytes Absolute Auto 1.46 K/mm3 (0.9-3.2); Lymphocytes Percent Auto 22.5 % (18.3-44.2); Mean Corpuscular HGB Conc 30.1 g/dl (32-36); Mean Corpuscular Hemoglobin 24.1 pg (26-34); Mean Platelet Volume 9.3 fl (7.4-10.4); Monocytes Absolute Auto 0.8 K/mm3 (0.1-0.6); Neutrophils Absolute Auto 3.8 K/mm3 (1.3-6.7); Neutrophils Percent Auto 58.1 % (45.5-73.1); Platelet Count Result 383 k/mm3 (150-375); Red Cell Distribution Width 18.6 % (11.5-14.5); White Blood Count 6.5 K/mm3 (4.5-10.0)
[2023-05-07] MEDS: METOPROLOL SUCCINATE EXT REL 25 MG TABCR PO (08:27)
[2023-05-07] MEDS: FERROUS SULFATE 325 MG TABLET DR PO ×2 (08:27→17:42)
[2023-05-07] MEDS: CYANOCOBALAMIN 1,000 MCG TABLET 1000 MCG PO (08:27)
[2023-05-07] MEDS: ATORVASTATIN 40 MG TABLET PO (20:45)
[2023-05-08 06:00] VITALS: BP 142/70; PULSE 77; RESP 16; TEMP 36.7; O2SAT 96
[2023-05-08 06:35] LABS: Basophils Absolute Auto 0.1 K/mm3 (0.0-0.1); Basophils Percent Auto 1.1 % (0.2-1.2); Eosinophils Absolute Auto 0.4 K/mm3 (0-0.3); Eosinophils Percent Auto 5.5 % (0-4.4); Hemoglobin 7.8 g/dL (12.0-15.0); Immature Granulocyte Absolute 0.04 K/mm3 (0.00-0.031); Immature Granulocyte Percent A 0.6 % (0-0.5); Lymphocytes Absolute Auto 1.43 K/mm3 (0.9-3.2); Mean Corpuscular Hemoglobin 24.4 pg (26-34); Mean Corpuscular Volume 81.3 fl (80-100); Mean Platelet Volume 9.3 fl (7.4-10.4); Monocytes Absolute Auto 0.8 K/mm3 (0.1-0.6); Monocytes Percent Auto 11.7 % (2.6-8.5); Neutrophils Absolute Auto 4.4 K/mm3 (1.3-6.7); Neutrophils Percent Auto 61.1 % (45.5-73.1); Platelet Count Result 378 k/mm3 (150-375); Red Cell Distribution Width 19.4 % (11.5-14.5); White Blood Count 7.2 K/mm3 (4.5-10.0)
[2023-05-08 06:44] LABS: Anion Gap 6 mmol/L (8-16); Blood Urea Nitrogen 12 mg/dL (7-17); Calcium 8.3 mg/dL (8.4-10.2); Carbon Dioxide 26 mmol/L (22-30); Chloride 108 mmol/L (98-107); Estimated CRCL calculation 55 ml/min; Estimated Glomerular Filt Rate > 60; Glucose 92 mg/dL (65-110); Magnesium 2.3 mg/dL (1.6-2.3); Potassium 3.8 mmol/L (3.4-5.0); Sodium 140 mmol/L (137-145)
[2023-05-08 08:00] VITALS: BP 135/74
[2023-05-08] MEDS: METOPROLOL SUCCINATE EXT REL 25 MG TABCR PO (09:28)
[2023-05-08] MEDS: CYANOCOBALAMIN 1,000 MCG TABLET 1000 MCG PO (09:29)
[2023-05-08] MEDS: FERROUS SULFATE 325 MG TABLET DR PO ×2 (09:29→15:53)
[2023-05-08 10:48] LABS: IFOB Positive Control Positive; Immunochemical Fecal Occult Bl Positive (N)
--- NOTE | 2023-05-08 13:20 | PCCCNOTE ---
On 05/08/23, the student, [Juany Waite], provided care and completed [facility] documentation on this patient. I have reviewed the student's documentation and agree with the findings.
[2023-05-08 14:00] VITALS: BP 135/74; PULSE 76; RESP 16; TEMP 36.2; O2SAT 99
--- NOTE | 2023-05-08 14:46 | WPDGICN ---
Assessment and Plan Assessment and plan (1) Iron deficiency anemia: Code(s): D50.9 - Iron deficiency anemia, unspecified Status: Acute Assessment and Plan: Patient with iron deficiency anemia. No obvious bleeding. But stool is confirmed to be Hemoccult positive. Patient has been on anticoagulation chronically for the last 2 years. Plan to hold Eliquis anticoagulation. Proceed with colonoscopy and EGD tomorrow after preparation today. Hopefully we can determine is safe to restart the anticoagulation. Likely patient will also need iron replacement to start after endoscopy is completed. Further recommendations may be given after endoscopy but if not definitive than small-bowel exam would be necessary and possible hematology evaluation. 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 HPI: Leisa Sanchez is a 87 year old female Reports fatigue over the last several weeks prompting her to be admitted to the hospital. She presented other family doctor blood count revealed significant anemia. Patient received 2units of blood and feels somewhat improved overnight. Iron indices reveal iron deficiency. Patient reports that several years ago she had a pulmonary embolus. She was placed on Eliquis. Eventually this was discontinued but she had a recurrent pulmonary embolus 1 year ago and is anticipated remain on Eliquis long time. Patient was found to be on iron and remained on this until February of this year when it was discontinued because her iron level was reported to be high. She did well until 2-3 weeks ago when she developed fatigue. This prompted blood count yesterday which showed profound anemia and for this reason patient was admitted to the hospital. Patient denies any obvious bleeding. Her bowel habits are normal. She has no nose bleeds. She has no bruising. No other bleeding reported. Family history noncontributory. Patient has remained on Eliquis as stated. Previous iron was stopped in february. After admission hospital iron indices are noted to be negative. In the ER patient's stool Hemoccult initially negative. Follow-up stool guaiac was positive after admission. Review of Systems Review of Systems: Review of systems noncontributory. [facility] Past Medical History Medical History (Updated 05/05/23 @ 20:33 by Linn eKrr PA-C) Chronic anticoagulation Hyperlipidemia Hypertension Iron deficiency anemia Pulmonary embolism (06/26/20) June 2020 and April 2022. 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 Code status: Full code. Smoking status: Never smoker Second hand tobacco smoke exposure: No Alcohol intake: never Substance use: never Lack of Transportation: No Lack of Food: Never True Current Housing: I Have Housing Concerned About Future Housing: No Difficulty Paying Gas/Electric Bills: No Difficulty Paying for Meds: No Currently Unemployed: No Education: High School Diploma/GED Difficulty w/ Childcare or Family Care: No Spiritual care concerns: No Meds Home Medications and Allergies Home Medications Medication Instructions Recorded Confirmed Type atorvastatin 40 mg tablet 40
[2023-05-08 15:09] LABS: Iron 17 ug/dL (37-170)
[2023-05-08 15:15] VITALS: BP 142/84; BP 143/75
[2023-05-08 15:17] VITALS: BP 142/84; BP 143/75
[2023-05-08 15:18] LABS: Percent Iron Saturation 4 % (20-50)
[2023-05-08] MEDS: PEG (High)/E-LYTE SOLN 4,000 ML BTL 4000 ML PO (15:53)
[2023-05-08 16:16] LABS: Folic Acid 15.7 ng/mL (2.76->20)
--- NOTE | 2023-05-08 16:24 | WPDPN ---
Progress Note: A&P Assessment and Plan (1) Symptomatic anemia: Code(s): D64.9 - Anemia, unspecified Status: Acute (2) Iron deficiency anemia: Code(s): D50.9 - Iron deficiency anemia, unspecified Status: Acute (3) Chronic anticoagulation: Code(s): Z79.01 - half-way (current) use of anticoagulants Status: Acute (4) Hypertension: Code(s): I10 - Essential (primary) hypertension Status: Acute (5) Hyperlipidemia: Code(s): E78.5 - Hyperlipidemia, unspecified Status: Acute Plan The patient presented to the emergency department with symptomatic anemia after she was found to have a low hemoglobin on labs drawn yesterday for evaluation of fatigue. Labs, imaging, EKG, and all reports were personally reviewed. She had previously been on iron supplementations however her iron levels were elevated on labs done in February and she was told to stop taking ferrous sulfate. The last couple of weeks she has been feeling fatigued and her iron levels yesterday were less than 10 and she was profoundly anemic as above. She will be transfused 2 units packed red blood cells and will repeat H&H thereafter. Ferritin level pending and depending on that we would consider Venofer infusion. She is on chronic anticoagulation given to unprovoked and rather large pulmonary emboli, the last being in April 2022. Presumably she has occult GI blood loss though her stool was brown and Hemoccult negative on rectal exam today done in the ED. External hemorrhoids were noted though she reports that they very rarely bleed small amounts if and when she has to strain for a bowel movement. Hold apixaban for now. Check stool for occult blood. Dr. Wells has been consulted and his input is appreciated. She would probably benefit from GI referral as an outpatient for upper and lower endoscopy. Vital signs have been stable. Her home medications will be reviewed and resumed as appropriate. 05/07/2023 interval history; upon arrival patient hgb was 6 and patient was given 2 units of PRBC and her Hgb was up to 8 and repeat hgb this morining trended down to 7.6 concerning for on going bleeding, patient is chronically anticoagulated with Eliquis for chronic PE which is on hold, patient is clinically stable will repeat the hemoglobin, will be seen GI and Hematology and further recommendation to follow Subjective Date/time seen: 05/08/23 16:24 Interval history: Abnormal labs. 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 She had a routine wellness visit in February and labs at that time showed that her hemoglobin had dropped from 12.5 to 9.1. Anemia studies were ordered and her iron level was elevated at 296 and she was told to stop taking her ferrous sulfate supplementation which she had been on since last fall. The last week or so she has become fatigued and weak and she had labs drawn yesterday which showed that her hemoglobin was 5.9 and she was directed to the ED. hemoglobin and hematocrit today were 6.0 in 21.2% respectively and she is being admitted in this setting for transfusion and further evaluation. Stool was brown and Hemoccult negative on rectal exam done in the ED; external hemorrhoids were noted. On rare occasions she will notice a small amount of bright red blood on the toilet tissue following a hard bowel movement but nothing of significance. She denies epistaxis, gingival bleeding, hemoptysis, hematemesis, hematuria, and melena. No recent change in diet. She denies diarrhea and if anything she has occasional constipation. No abdominal pain, epigastric pain, bloating, or belching. 05/07/2023 interval history; upon arrival patient hgb was 6 and patient was given 2 units
--- NOTE | 2023-05-08 16:29 | WPDPN ---
Progress Note: A&P Assessment and Plan (1) Symptomatic anemia: Code(s): D64.9 - Anemia, unspecified Status: Acute (2) Iron deficiency anemia: Code(s): D50.9 - Iron deficiency anemia, unspecified Status: Acute (3) Chronic anticoagulation: Code(s): Z79.01 - group home (current) use of anticoagulants Status: Acute (4) Hypertension: Code(s): I10 - Essential (primary) hypertension Status: Acute (5) Hyperlipidemia: Code(s): E78.5 - Hyperlipidemia, unspecified Status: Acute Plan The patient presented to the emergency department with symptomatic anemia after she was found to have a low hemoglobin on labs drawn yesterday for evaluation of fatigue. Labs, imaging, EKG, and all reports were personally reviewed. She had previously been on iron supplementations however her iron levels were elevated on labs done in February and she was told to stop taking ferrous sulfate. The last couple of weeks she has been feeling fatigued and her iron levels yesterday were less than 10 and she was profoundly anemic as above. She will be transfused 2 units packed red blood cells and will repeat H&H thereafter. Ferritin level pending and depending on that we would consider Venofer infusion. She is on chronic anticoagulation given to unprovoked and rather large pulmonary emboli, the last being in April 2022. Presumably she has occult GI blood loss though her stool was brown and Hemoccult negative on rectal exam today done in the ED. External hemorrhoids were noted though she reports that they very rarely bleed small amounts if and when she has to strain for a bowel movement. Hold apixaban for now. Check stool for occult blood. Dr. Wells has been consulted and his input is appreciated. She would probably benefit from GI referral as an outpatient for upper and lower endoscopy. Vital signs have been stable. Her home medications will be reviewed and resumed as appropriate. 05/08/2023 interval history; upon arrival patient hgb was 6 and patient was given 2 units of PRBC and her Hgb was up to 8 and repeat hgb this morining trended down to 7.8 concerning for on going bleeding, patient is chronically anticoagulated with Eliquis for chronic PE which is on hold, Patient never had colonoscopy or EGD patient was seen by GI today and recommeded the procedures which is scheduled for tomorrow, patient is clinically stable will repeat the hemoglobin, will be seen GI and Hematology and further recommendation to follow Subjective Date/time seen: 05/08/23 16:29 Interval history: Abnormal labs. 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 She had a routine wellness visit in February and labs at that time showed that her hemoglobin had dropped from 12.5 to 9.1. Anemia studies were ordered and her iron level was elevated at 296 and she was told to stop taking her ferrous sulfate supplementation which she had been on since last fall. The last week or so she has become fatigued and weak and she had labs drawn yesterday which showed that her hemoglobin was 5.9 and she was directed to the ED. hemoglobin and hematocrit today were 6.0 in 21.2% respectively and she is being admitted in this setting for transfusion and further evaluation. Stool was brown and Hemoccult negative on rectal exam done in the ED; external hemorrhoids were noted. On rare occasions she will notice a small amount of bright red blood on the toilet tissue following a hard bowel movement but nothing of significance. She denies epistaxis, gingival bleeding, hemoptysis, hematemesis, hematuria, and melena. No recent change in diet. She denies diarrhea and if anything she has occasional constipation. No abdominal pain,
[2023-05-08] MEDS: ATORVASTATIN 40 MG TABLET PO (21:13)
[2023-05-08 21:42] VITALS: BP 147/73; PULSE 86; RESP 18; TEMP 36.4; O2SAT 95
[2023-05-09] VITALS (10 sets, daily range): BP systolic 111–162; BP diastolic 51–84; PULSE 74–96; RESP 14–20; TEMP 36.2–37; O2SAT 96–100
[2023-05-09 06:26] LABS: Basophils Absolute Auto 0.1 K/mm3 (0.0-0.1); Basophils Percent Auto 1.3 % (0.2-1.2); Eosinophils Absolute Auto 0.4 K/mm3 (0-0.3); Eosinophils Percent Auto 4.4 % (0-4.4); Hematocrit 30.5 % (37.0-47.0); Hemoglobin 8.9 g/dL (12.0-15.0); Immature Granulocyte Absolute 0.07 K/mm3 (0.00-0.031); Immature Granulocyte Percent A 0.8 % (0-0.5); Lymphocytes Absolute Auto 2.25 K/mm3 (0.9-3.2); Lymphocytes Percent Auto 24.8 % (18.3-44.2); Mean Corpuscular HGB Conc 29.2 g/dl (32-36); Mean Corpuscular Hemoglobin 23.9 pg (26-34); Mean Corpuscular Volume 81.8 fl (80-100); Mean Platelet Volume 9.3 fl (7.4-10.4); Monocytes Absolute Auto 0.9 K/mm3 (0.1-0.6); Monocytes Percent Auto 9.6 % (2.6-8.5); Neutrophils Absolute Auto 5.4 K/mm3 (1.3-6.7); Neutrophils Percent Auto 59.1 % (45.5-73.1); Platelet Count Result 454 k/mm3 (150-375); Red Blood Count 3.73 M/mm3 (4.2-5.4); Red Cell Distribution Width 20.6 % (11.5-14.5); White Blood Count 9.1 K/mm3 (4.5-10.0)
[2023-05-09 06:53] LABS: Anion Gap 7 mmol/L (8-16); Blood Urea Nitrogen 11 mg/dL (7-17); Calcium 8.7 mg/dL (8.4-10.2); Carbon Dioxide 28 mmol/L (22-30); Chloride 105 mmol/L (98-107); Estimated CRCL calculation 54 ml/min; Estimated Glomerular Filt Rate > 60; Glucose 93 mg/dL (65-110); Magnesium 2.3 mg/dL (1.6-2.3); Potassium 3.5 mmol/L (3.4-5.0); Sodium 140 mmol/L (137-145)
[2023-05-09 06:55] LABS: Hypochromasia 1+ (NORMAL); Platelet Clumps Present; Platelet Estimate Increased (Adequate)
[2023-05-09 06:56] LABS: Anisocytosis 1+ (NORMAL); Macrocytosis 1+ (NORMAL); Ovalocytes 1+ (NORMAL); Poikilocytosis 1+ (NORMAL)
[2023-05-09 06:57] LABS: Schistocytes 1+ (NORMAL)
[2023-05-09] MEDS: METOPROLOL SUCCINATE EXT REL 25 MG TABCR PO (08:32)
[2023-05-09] MEDS: FERROUS SULFATE 325 MG TABLET DR PO ×2 (08:32→16:56)
[2023-05-09] MEDS: CYANOCOBALAMIN 1,000 MCG TABLET 1000 MCG PO (08:32)
--- NOTE | 2023-05-09 12:42 | WPDPN ---
Progress Note: A&P Assessment and Plan (1) Symptomatic anemia: Code(s): D64.9 - Anemia, unspecified Status: Acute (2) Iron deficiency anemia: Code(s): D50.9 - Iron deficiency anemia, unspecified Status: Acute (3) Chronic anticoagulation: Code(s): Z79.01 - senior care (current) use of anticoagulants Status: Acute (4) Hypertension: Code(s): I10 - Essential (primary) hypertension Status: Acute (5) Hyperlipidemia: Code(s): E78.5 - Hyperlipidemia, unspecified Status: Acute Plan The patient presented to the emergency department with symptomatic anemia after she was found to have a low hemoglobin on labs drawn yesterday for evaluation of fatigue. Labs, imaging, EKG, and all reports were personally reviewed. She had previously been on iron supplementations however her iron levels were elevated on labs done in February and she was told to stop taking ferrous sulfate. The last couple of weeks she has been feeling fatigued and her iron levels yesterday were less than 10 and she was profoundly anemic as above. She will be transfused 2 units packed red blood cells and will repeat H&H thereafter. Ferritin level pending and depending on that we would consider Venofer infusion. She is on chronic anticoagulation given to unprovoked and rather large pulmonary emboli, the last being in April 2022. Presumably she has occult GI blood loss though her stool was brown and Hemoccult negative on rectal exam today done in the ED. External hemorrhoids were noted though she reports that they very rarely bleed small amounts if and when she has to strain for a bowel movement. Hold apixaban for now. Check stool for occult blood. Dr. Wells has been consulted and his input is appreciated. She would probably benefit from GI referral as an outpatient for upper and lower endoscopy. Vital signs have been stable. Her home medications will be reviewed and resumed as appropriate. 05/09/2023 interval history; upon arrival patient hgb was 6 and patient was given 2 units of PRBC and her Hgb was up to 8 and repeat hgb this morining is 8.9 most likely due to hemoconcentration as patient is NPO for EGD and colonoscopy, concerning for on going bleeding, patient is chronically anticoagulated with Eliquis for chronic PE which is on hold, Patient never had colonoscopy or EGD patient was seen by GI today patient is scheduled for the procedures, Patient with very low iron, will give venofer 300mg, patient will be seen by food beverage server, patient is clinically stable will repeat the hemoglobin, will be seen GI and Hematology and further recommendation to follow. Subjective Date/time seen: 05/09/23 12:42 Interval history: Abnormal labs. 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 She had a routine wellness visit in February and labs at that time showed that her hemoglobin had dropped from 12.5 to 9.1. Anemia studies were ordered and her iron level was elevated at 296 and she was told to stop taking her ferrous sulfate supplementation which she had been on since last fall. The last week or so she has become fatigued and weak and she had labs drawn yesterday which showed that her hemoglobin was 5.9 and she was directed to the ED. hemoglobin and hematocrit today were 6.0 in 21.2% respectively and she is being admitted in this setting for transfusion and further evaluation. Stool was brown and Hemoccult negative on rectal exam done in the ED; external hemorrhoids were noted. On rare occasions she will notice a small amount of bright red blood on the toilet tissue following a hard bowel movement but nothing of significance. She denies epistaxis, gingival bleeding, hemoptysis, hematemes
[2023-05-09] MEDS: LACTATED RINGERS 1,000 ML 150 ML IV CONT (12:54)
--- NOTE | 2023-05-09 13:14 | WPDANESEPPF ---
Anes - Initial Pre Proc Eval Procedure: Operation Date: 05/09/23 14:15 Proposed Procedures p Esophagogastroduodenoscopy & Colonoscopy - Hussain Powers MD Date/Time: 05/09/23 13:14 Surgeon: Henry Odonnell MD Pre Op Diagnosis: Critical Low HDB/ Iron Deficiency Anemia Patient Data Age: 87 Gender: F Height: 1.68 m Weight: 86.5 kg Last Vital Signs Temp 97.2 F L 05/09/23 12:48 Pulse 82 05/09/23 12:48 Resp 20 05/09/23 12:48 BP 162/69 H 05/09/23 12:48 Pulse Ox 98 05/09/23 12:48 O2 Del Method Room Air 05/09/23 12:48 Allergies Allergy/AdvReac Type Severity Reaction Status Date / Time No Known Allergies Allergy Verified 05/09/23 12:46 Home Medications Medication Instructions Recorded Confirmed Type atorvastatin 40 mg tablet 40 mg PO HS 07/20/20 05/05/23 History apixaban 5 mg tablet (Eliquis) 5 mg PO BID 05/03/22 05/09/23 History cyanocobalamin (vitamin B-12) 1,000 mcg PO DAILY 05/05/23 05/05/23 History 1,000 mcg tablet (Vitamin B-12) metoprolol succinate 25 mg 25 mg PO DAILY 05/05/23 05/05/23 History tablet,extended release 24 hr Laboratory Tests 05/08/23 05/09/23 06:16 06:02 WBC 9.1 K/mm3 (4.5-10.0) RBC 3.73 L M/mm3 (4.2-5.4) Hgb 8.9 L g/dL (12.0-15.0) Hct 30.5 L % (37.0-47.0) MCV 81.8 fl (80-100) MCH 23.9 L pg (26-34) MCHC 29.2 L g/dl (32-36) RDW 20.6 H % (11.5-14.5) Plt Count 454 H k/mm3 (150-375) MPV 9.3 fl (7.4-10.4) Immature Gran % (Auto) 0.8 H % (0-0.5) Neut % (Auto) 59.1 % (45.5-73.1) Lymph % (Auto) 24.8 % (18.3-44.2) [place] % (Auto) 9.6 H % (2.6-8.5) Eos % (Auto) 4.4 % (0-4.4) Baso % (Auto) 1.3 H % (0.2-1.2) Lymph # (Auto) 2.25 K/mm3 (0.9-3.2) [place] # (Auto) 0.9 H K/mm3 (0.1-0.6) Eos # (Auto) 0.4 H K/mm3 (0-0.3) Baso # (Auto) 0.1 K/mm3 (0.0-0.1) Abs Immat Gran (auto) 0.07 H K/mm3 (0.00-0.031) Absolute Neuts (auto) 5.4 K/mm3 (1.3-6.7) Absolute Nucleated RBC 0.0 K/mm3 (0.0-0.012) Nucleated RBC % 0.0 % (0.0-0.2) Platelet Estimate Increased (Adequate) Clumped Platelets Present Hypochromasia 1+ (NORMAL) Poikilocytosis 1+ (NORMAL) Anisocytosis 1+ (NORMAL) Macrocytosis 1+ (NORMAL) Ovalocytes 1+ (NORMAL) Schistocytes 1+ (NORMAL) Sodium 140 mmol/L (137-145) Potassium 3.5 mmol/L (3.4-5.0) Chloride 105 mmol/L (98-107) Carbon Dioxide 28 mmol/L (22-30) Anion Gap 7 L mmol/L (8-16) BUN 11 mg/dL (7-17) Creatinine 0.70 mg/dL (0.7-1.0) Estim Creat Clear Calc 54 ml/min Estimated GFR > 60 (59 - ) Glucose 93 mg/dL (65-110) Calcium 8.7 mg/dL (8.4-10.2) Magnesium 2.3 mg/dL (1.6-2.3) Iron 17 L ug/dL (37-170) TIBC 390 ug/dL (261-462) % Saturation 4 L % (20-50) Vitamin B12 748.0 pg/mL (239-931) Folate 15.7 ng/mL (2.76->20) Patient hx anesthesia problems: none Family hx anesthesia problems: none Results Review: All pre-operative results and documents have been reviewed as part of the pre-operative evaluation. [facility] Past Medical History Medical History (Updated 05/05/23 @ 20:33 by Linn Kerr PA-C) Chronic anticoagulation Hyperlipidemia Hypertension Iron deficiency anemia Pulmonary embolism (06/26/20) June 2020 and April 2022. Stroke Surgical History Surgical History (Updated 05/05/23 @ 14:25 by Linn Kerr PA-C) History of appendectomy (1950) History of bilateral knee replacement (01/16/01) Family History Family History Father Heart disease Mother Heart disease Sibling Hypertension Social History Social History
--- NOTE | 2023-05-09 13:45 | SUR.OPER ---
EGD START: 1335; END: 1337. COLONOSCOPY START: 1345; END: 1357.
--- NOTE | 2023-05-09 17:17 | PM.CNGS ---
Assessment and Plan Assessment and plan (1) Mass of cecum: Code(s): K63.89 - Other specified diseases of intestine Status: Acute Assessment and Plan: I have reviewed the colonoscopy and notes from Dr. Powers. The patient has a large malignant-appearing mass in the cecum and ascending colon. I had a thorough discussion with the patient about the likelihood of this being cancer and the potential treatment options. I would like to get a CT chest/abdomen/pelvis tomorrow to assess for any signs of metastases. CEA level has also been ordered and is pending. If this appears to be an early stage cancer, then I would recommend proceeding with hand assisted laparoscopic right hemicolectomy. I discussed that with her anemia and chronic anticoagulation, coupled with her history of PE and no suspected colon cancer which increases hypercoagulable state, performing surgery sooner rather than later would be ideal. I will keep her on clear liquid diet tonight and have further discussions after the CT results tomorrow. Will potentially plan to keep patient in the hospital and proceed with right hemicolectomy during this hospitalization. Patient voiced her understanding. Also was able to discuss this with her 2 sons, 1 of which is her power of assistant city attorney. (2) Iron deficiency anemia: Qualifiers: Iron deficiency anemia type: chronic blood loss Qualified Code(s): D50.0 - Iron deficiency anemia secondary to blood loss (chronic) Code(s): D50.9 - Iron deficiency anemia, unspecified Status: Acute (3) Chronic anticoagulation: Code(s): Z79.01 - manager terminal (current) use of anticoagulants Status: Acute (4) History of pulmonary embolism: Code(s): Z86.711 - Personal history of pulmonary embolism Status: Acute History of Present Illness Consult details Consult date: 05/09/23 Reason for consult: other (Colon mass, anemia) Requesting physician: Hussain Powers MD Narrative: This is an 87-year-old woman who I am asked to see for a colon mass. She just underwent colonoscopy and EGD today by Dr. Powers. She was admitted to the hospital through the emergency department on 05/05/2023 for profound anemia. She has been dealing with some anemia for the past 2 years. She was on iron pills and this was helping but then her iron levels were too high and she was instructed to stop the iron. She had had any further investigation with a colonoscopy prior to this admission. She was not noticing any blood in her stool, but this was obscured while she was on iron. She has been more fatigued but denies any shortness of breath or weight loss. She denies any abdominal pain. EGD showed a large hiatal hernia but no signs of upper GI source of bleeding. Colonoscopy showed a malignant-appearing mass at the cecum and ascending colon. The patient is on long-term anticoagulation for a history of PE. She has been off of her anticoagulation since 05/05. Review of Systems Review of Systems: All systems reviewed & are unremarkable except as noted in HPI and below Constitutional: Constitutional: Denies chills, Reports fatigue and Denies fever(s) Eyes: Eyes: Denies change in vision ENT: Denies hearing loss, Denies neck pain and Denies sore throat Cardiovascular: Cardiovascular: Denies chest pain and Denies dyspnea Respiratory: Respiratory: Denies cough, Denies dyspnea and Denies wheezing Gastrointestinal: Gastrointestinal: Reports as per HPI Genitourinary: Genitourinary: Denies hematuria and Denies dysuria Musculoskeletal: Musculoskeletal: Denies arthralgias, Denies joint swelling and Denies neck pain Allergic/Immunologic: Allergic/Immunologic: Denies wheezing [facility] Past Medical History Medical History (Updated 05/09/23 @ 17:33 by Jd Malagon DO) Chronic anticoagulation Hyperlipidemia Hypertension Iron deficiency anemia Pulmonary embolism (06/26/20) June 2020 and April 2022. Stroke Surgical H
--- NOTE | 2023-05-09 17:41 | PDONCCN ---
HPI - Date of Consult Date/Time: 05/09/23 17:41 Requesting Physician: Henry Odonnell MD Primary Care Provider: Durga Aguayo, DO - Consult Narrative Reason for consult: Cecal mass Narrative: Leisa Sanchez is a 87 year old female whom I saw as inpatient consult for further management of cecal mass noted on colonoscopy performed today, 05/09/23. Patient has been feeling fatigued for past few months. Her PCP ordered CBC on 05/05/23 and hemoglobin was noted to be 5.9g/dL. Patient was admitted through ER for critical anemia. she has received PRBC transfusion and IV Iron infusion since then. Fecal blood was positive and colonoscopy was performed which showed fungating mass in he cecum. We are awaiting pathology findings. Patient also has history of Pulmonary embolism x2 (2019 and 2021). She was on Xarelto for 6 months in 2019 and after the recurrent PE in 2021 she was placed on eliquis and remained on Eliquis till the day of admission. Eliquis is held due to severe anemia and bleeding cecal mass. Oncology is asked for further management of cecal mass. Review of Systems - Review of Systems Patient states that she has been progressively feeling tired for past few months. She never has noted any blood in stool. She has chronically been on oral iron for anemia by PCP and had dark stool from iron. She denies any significant abdominal pain, nausea or vomiting. Denies significant weight loss. She has good appetite. There has been no significant change in stool pattern. She denies chest pain or dyspnea, cough or hemoptysis. Denies dizziness, vision changes, falls, syncope. Denies rash. Denies lymphadenopathy. [facility] Medical History: Medical History (Last Updated 05/05/23 @ 20:33 by Linn Kerr PA-C) Chronic anticoagulation Hyperlipidemia Hypertension Iron deficiency anemia Pulmonary embolism Onset Date: 06/26/20 and April 2022. Stroke Surgical History: Surgical History (Last Updated 05/05/23 @ 14:25 by Linn Kerr PA-C) History of appendectomy Onset Date: 1950 History of bilateral knee replacement Onset Date: 01/16/01 Family History: Family History (Last Reviewed 05/05/23 @ 14:25 by Linn Kerr PA-C) Father Heart disease Mother Heart disease Sibling Hypertension - Social History Social History: Social History (Last Reviewed 05/05/23 @ 20:33 by Linn Kerr PA-C) Alcohol Use: Alcohol intake: never Substance Use: Substance use: never Others: Spiritual care concerns: No Smoking Status: Smoking status: Never smoker Second hand tobacco smoke exposure: No Social Determinants of Health: Has the Lack of Transportation Kept You From Medical Appointments or From Getting Medications?: No Within the Past 12 Months, Were You Worried Whether Your Food Would Run Out Before You Got Money to Buy More?: Never True What is Your Housing Situation Today?: I Have Housing Are You Worried That in the Next 2 Months, You May Not Have Your Own Housing to Live In?: No Do You Have Trouble Paying Your Heating Or Electricity Bill?: No Do You Have Trouble Paying For Medicines?: No Are You Currently Unemployed and Looking for Work?: No Highest Level of Education Completed: High School Diploma/GED Do You Have Trouble With Childcare or the Care of a Family Member?: No Exam - Vital Signs Vital Signs - 24 hr 05/08/23 21:42 05/09/23 06:00 05/09/23 08:00 Temperature 36.4 C L 37.0 C 36.8 C Pulse Rate 86 75 78 Respiratory Rate 18 14 16 Blood Pressure 147/73 H 123/51 L 125/59 L Pulse Oximetry 95 98 99 Oxygen Delivery 05/09/23 08:31 05/09/23 08:31 05/09/23 08:00 Temperature Pulse Rate Respiratory Rate Blood Pressure 142/68 H 129/66 Pulse Oximetry Oxygen Delivery Room Air 05/09/23 12:48 05/09/23 14:02 05/09/23 14:12 Temperature 36.2 C L Pulse Rate 82 7
[2023-05-09] MEDS: ATORVASTATIN 40 MG TABLET PO (20:21)
[2023-05-10 03:33] LABS: Carcinoembryonic Antigen 3.2 ng/mL (0.0-3.0)
[2023-05-10 06:00] VITALS: BP 143/72; PULSE 79; RESP 18; TEMP 36.1; O2SAT 97
[2023-05-10 06:07] LABS: Basophils Absolute Auto 0.1 K/mm3 (0.0-0.1); Eosinophils Absolute Auto 0.3 K/mm3 (0-0.3); Eosinophils Percent Auto 4.6 % (0-4.4); Hemoglobin 7.9 g/dL (12.0-15.0); Immature Granulocyte Absolute 0.03 K/mm3 (0.00-0.031); Immature Granulocyte Percent A 0.4 % (0-0.5); Lymphocytes Absolute Auto 1.25 K/mm3 (0.9-3.2); Lymphocytes Percent Auto 17.9 % (18.3-44.2); Mean Corpuscular HGB Conc 29.3 g/dl (32-36); Mean Corpuscular Hemoglobin 24.2 pg (26-34); Mean Corpuscular Volume 82.8 fl (80-100); Mean Platelet Volume 9.3 fl (7.4-10.4); Monocytes Absolute Auto 0.8 K/mm3 (0.1-0.6); Monocytes Percent Auto 11.9 % (2.6-8.5); Neutrophils Absolute Auto 4.5 K/mm3 (1.3-6.7); Neutrophils Percent Auto 64.2 % (45.5-73.1); Platelet Count Result 351 k/mm3 (150-375); Red Blood Count 3.26 M/mm3 (4.2-5.4); Red Cell Distribution Width 21.2 % (11.5-14.5)
[2023-05-10 06:26] LABS: Anion Gap 3 mmol/L (8-16); Blood Urea Nitrogen 8 mg/dL (7-17); Calcium 8.2 mg/dL (8.4-10.2); Carbon Dioxide 27 mmol/L (22-30); Chloride 107 mmol/L (98-107); Estimated CRCL calculation 62 ml/min; Estimated Glomerular Filt Rate > 60; Glucose 86 mg/dL (65-110); Magnesium 2.1 mg/dL (1.6-2.3); Potassium 3.6 mmol/L (3.4-5.0); Sodium 137 mmol/L (137-145)
--- NOTE | 2023-05-10 07:21 | WPDANESPN ---
Anes - Prog Note Post-Op Date/Time: 05/10/23 07:21 Cardiovascular status: normal Respiratory status: normal Airway patency: baseline Mental status: baseline Post-Op hydration status: normal Vital Signs: Last Vital Signs Temp 96.9 F L 05/10/23 06:00 Pulse 79 05/10/23 06:00 Resp 18 05/10/23 06:00 BP 143/72 H 05/10/23 06:00 Pulse Ox 97 05/10/23 06:00 O2 Del Method Room Air 05/09/23 20:00 Pain Score (VAS): 0/10 I/O: Intake & Output 05/09/23 05/09/23 05/10/23 15:59 23:59 07:59 Intake Total 315 0 400 Balance 315 0 400 Laboratory Tests 05/10/23 05:51 05/10/23 05:51 05/09/23 05/10/23 06:00 05:51 WBC 7.0 RBC 3.26 L Hgb 7.9 L Hct 27.0 L MCV 82.8 MCH 24.2 L MCHC 29.3 L RDW 21.2 H Plt Count 351 MPV 9.3 Immature Gran % (Auto) 0.4 Neut % (Auto) 64.2 Lymph % (Auto) 17.9 L [place] % (Auto) 11.9 H Eos % (Auto) 4.6 H Baso % (Auto) 1.0 Lymph # (Auto) 1.25 [place] # (Auto) 0.8 H Eos # (Auto) 0.3 Baso # (Auto) 0.1 Abs Immat Gran (auto) 0.03 Absolute Neuts (auto) 4.5 Absolute Nucleated RBC 0.0 Nucleated RBC % 0.0 Platelet Estimate Pending Schistocytes Pending Sodium 137 Potassium 3.6 Chloride 107 Carbon Dioxide 27 Anion Gap 3 L BUN 8 Creatinine 0.60 L Estim Creat Clear Calc 62 Estimated GFR > 60 Glucose 86 Calcium 8.2 L Magnesium 2.1 Carcinoembryonic Ag 3.2 H Post-procedural complaints: none Patient Feedback: Patient satisfied with anesthetic care.
[2023-05-10 07:36] LABS: Platelet Estimate Adequate (Adequate); Poikilocytosis 2+ (NORMAL)
[2023-05-10 07:37] LABS: Acanthocytes 1+ (NORMAL); Hypochromasia 1+ (NORMAL); Schistocytes 1+ (NORMAL)
[2023-05-10 07:38] LABS: Anisocytosis 1+ (NORMAL)
--- NOTE | 2023-05-10 07:44 | WPDGIPROGNO ---
Progress Note: A&P Assessment and Plan (1) Colonic mass: Code(s): K63.89 - Other specified diseases of intestine Status: Acute Assessment and Plan: Mass at the cecum and ascending colon with malignant appearance. Histology pending. Agree with CT scan to assess for any metastases. Hopefully this can be resected during this admission. Final path report pending. (2) Iron deficiency anemia: Qualifiers: Iron deficiency anemia type: chronic blood loss Qualified Code(s): D50.0 - Iron deficiency anemia secondary to blood loss (chronic) Code(s): D50.9 - Iron deficiency anemia, unspecified Status: Acute Assessment and Plan: Patient with iron deficiency anemia because of colon mass along with anticoagulation. Anticoagulation to be held until after resection accomplished. (3) Chronic anticoagulation: Code(s): Z79.01 - custodial (current) use of anticoagulants Status: Acute Assessment and Plan: Hold anticoagulation for now. Restart after surgery. (4) History of pulmonary embolism: Code(s): Z86.711 - Personal history of pulmonary embolism Status: Acute Subjective Date/time seen: 05/10/23 07:44 Interval history: Patient alert comfortable this morning. She had opportunity to talk to surgery. CT scan to be performed. Await final path report. anticipate surgical resection during this admission. Review of Systems Review of Systems: Review of systems noncontributory. Exam Narrative: Physical exam reveals patient to be alert. Vital signs stable. HEENT exam reveals no icterus. Lungs are clear. Heart without murmur. Abdomen bowel sounds present soft nontender. Objective Data Vital Signs Vital Signs: Vital Signs - 24 hr 05/09/23 08:00 05/09/23 08:31 05/09/23 08:31 Temperature 98.3 F Pulse Rate 78 Respiratory Rate 16 Blood Pressure 125/59 L 142/68 H 129/66 Pulse Oximetry 99 Oxygen Delivery 05/09/23 08:00 05/09/23 12:48 05/09/23 14:02 Temperature 97.2 F L Pulse Rate 82 78 Respiratory Rate 20 19 Blood Pressure 162/69 H 111/67 Pulse Oximetry 98 96 Oxygen Delivery Room Air Room Air Room Air 05/09/23 14:12 05/09/23 14:22 05/09/23 16:02 Temperature 97.4 F L Pulse Rate 80 74 90 Respiratory Rate 20 20 16 Blood Pressure 138/73 159/84 H 124/83 Pulse Oximetry 100 100 98 Oxygen Delivery Room Air Room Air 05/09/23 21:06 05/09/23 21:07 05/09/23 21:06 Temperature 98.5 F Pulse Rate 77 77 76 Respiratory Rate 18 Blood Pressure 148/75 H 148/75 H 150/78 H Pulse Oximetry 99 99 97 Oxygen Delivery 05/09/23 21:07 05/09/23 20:00 05/10/23 06:00 Temperature 96.9 F L Pulse Rate 96 79 Respiratory Rate 18 Blood Pressure 131/70 143/72 H Pulse Oximetry 98 97 Oxygen Delivery Room Air Intake/Output Intake/Output: Intake & Output 05/07/23 05/08/23 05/09/23 05/10/23 23:59 23:59 23:59 23:59 Intake Total 1530 1960 1115 400 Output Total 1000 1100 Balance 580 789 8952 400 Meds/Results Medications: Active Medications Generic Name Dose Route Start Last Admin Trade Name Freq PRN Reason Stop Dose Admin Acetaminophen 650 mg 05/05/23 14:28 Acetaminophen 325 Mg Tablet PO Q6H PRN Mild Pain (1-3) or Fever Atorvastatin Calcium 40 mg 05/05/23 21:00 05/09/23 20:21 Atorvastatin 40 Mg Tablet PO 40 mg HS NEMESIO Administration Cyanocobalamin 1,000 mcg 05/06/23 09:00 05/09/23 08:32 Cyanocobalamin 1,000 Mcg Tablet PO 1,000 mcg DAILY NEMESIO Administration Ferrous Sulfate 325 mg 05/06/23 09:00 05/09/23 16:56 Ferrous Sulfate [address] PO 325 mg BID NEMESIO Administration Metoprolol Succinate 25 mg 05/06/23 09:00 05/09/23 08:32 Metoprolol Succinate Ext Rel 25 Mg Tabcr PO 25 mg DAILY NEMESIO Administration Labs Labs: Laboratory Results - last 24 hr 05/09/23 05/10/23 06:00 05:51 WBC 7.0 RBC 3.26 L Hgb 7.9
[2023-05-10 08:00] VITALS: BP 141/55; PULSE 88; RESP 18; TEMP 36.8; O2SAT 97
[2023-05-10 08:09] VITALS: BP 130/69; BP 148/69
[2023-05-10 09:13] VITALS: PULSE 89
[2023-05-10] MEDS: METOPROLOL SUCCINATE EXT REL 25 MG TABCR PO (09:13)
[2023-05-10] MEDS: CYANOCOBALAMIN 1,000 MCG TABLET 1000 MCG PO (09:13)
[2023-05-10] MEDS: FERROUS SULFATE 325 MG TABLET DR PO ×2 (09:13→16:40)
--- NOTE | 2023-05-10 12:12 | PM.PNGS ---
Progress Note: A&P Assessment and Plan (1) Mass of cecum: Code(s): K63.89 - Other specified diseases of intestine Status: Acute Assessment and Plan: I reviewed the CT and discussed the findings with the patient and her son. She has a 2.5 cm mass in the right lobe of the liver that is consistent with metastatic disease. This certainly makes treatment more complex given these findings. Will arrange for CT-guided biopsy of liver mass to confirm whether this is metastatic or other benign disease. If this is a solitary area of metastases, this could be potentially resected at the same time as colon resection. I would have to refer the patient to [facility] if this were to be attempted. Will await biopsy results and further discussion with Oncology. 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 No pain. No bleeding. Exam GI: Inspection: non-distended GI Palp: Yes Soft to palpation, No Tenderness to palpation present (GI) and No Guarding due to palpation present (GI) Percussion: Yes normal to percussion Auscultation: normal bowel sounds Objective Data Vital Signs Vital Signs: Vital Signs - 24 hr 05/09/23 12:48 05/09/23 14:02 05/09/23 14:12 Temperature 36.2 C L Pulse Rate 82 78 80 Respiratory Rate 20 19 20 Blood Pressure 162/69 H 111/67 138/73 Pulse Oximetry 98 96 100 Oxygen Delivery Room Air Room Air Room Air 05/09/23 14:22 05/09/23 16:02 05/09/23 21:06 Temperature 36.3 C L Pulse Rate 74 90 77 Respiratory Rate 20 16 Blood Pressure 159/84 H 124/83 148/75 H Pulse Oximetry 100 98 99 Oxygen Delivery Room Air 05/09/23 21:07 05/09/23 21:06 05/09/23 21:07 Temperature 36.9 C Pulse Rate 77 76 96 Respiratory Rate 18 Blood Pressure 148/75 H 150/78 H 131/70 Pulse Oximetry 99 97 98 Oxygen Delivery 05/09/23 20:00 05/10/23 06:00 05/10/23 08:00 Temperature 36.1 C L 36.8 C Pulse Rate 79 88 Respiratory Rate 18 18 Blood Pressure 143/72 H 141/55 H Pulse Oximetry 97 97 Oxygen Delivery Room Air 05/10/23 08:09 05/10/23 08:09 05/10/23 09:13 Temperature Pulse Rate 89 Respiratory Rate Blood Pressure 148/69 H 130/69 Pulse Oximetry Oxygen Delivery Intake/Output Intake/Output: Intake & Output 05/07/23 05/08/23 05/09/23 05/10/23 23:59 23:59 23:59 23:59 Intake Total 1530 1960 1115 640 Output Total 1000 1100 Balance 288 290 1781 640 Meds/Results Medications: Active Medications Generic Name Dose Route Start Last Admin Trade Name Timaq PRN Reason Stop Dose Admin Acetaminophen 650 mg 05/05/23 14:28 Acetaminophen 325 Mg Tablet PO Q6H PRN Mild Pain (1-3) or Fever Atorvastatin Calcium 40 mg 05/05/23 21:00 05/09/23 20:21 Atorvastatin 40 Mg Tablet PO 40 mg HS NEMESIO Administration Cyanocobalamin 1,000 mcg 05/06/23 09:00 05/10/23 09:13 Cyanocobalamin 1,000 Mcg Tablet PO 1,000 mcg DAILY NEMESIO Administration Ferrous Sulfate 325 mg 05/06/23 09:00 05/10/23 09:13 Ferrous Sulfate [address] PO 325 mg BID NEMESIO Administration Metoprolol Succinate 25 mg 05/06/23 09:00 05/10/23 09:13 Metoprolol Succinate Ext Rel 25 Mg Tabcr PO 25 mg DAILY NEMESIO Administration Radiology Results: ITS Impressions Chest/Abdomen/Pelvis CT 05/10/23 08:26 Impression: Suspected 5.0 x 4.1 cm cecal mass, as detailed above, which would be suspicious for adenocarcinoma. C
[2023-05-10 13:48] VITALS: BP 144/75; PULSE 83; RESP 16; TEMP 36.3; O2SAT 97
--- NOTE | 2023-05-10 14:22 | PCCCNOTE ---
On 05/10/23, the student, [Em Waite], provided care and completed [facility] documentation on this patient. I have reviewed the student's documentation and agree with the findings.
--- NOTE | 2023-05-10 15:45 | WPDPN ---
Progress Note: A&P Assessment and Plan (1) Symptomatic anemia: Code(s): D64.9 - Anemia, unspecified Status: Acute (2) Iron deficiency anemia: Qualifiers: Iron deficiency anemia type: chronic blood loss Qualified Code(s): D50.0 - Iron deficiency anemia secondary to blood loss (chronic) Code(s): D50.9 - Iron deficiency anemia, unspecified Status: Acute (3) Chronic anticoagulation: Code(s): Z79.01 - prison (current) use of anticoagulants Status: Acute (4) Hypertension: Code(s): I10 - Essential (primary) hypertension Status: Acute (5) Hyperlipidemia: Code(s): E78.5 - Hyperlipidemia, unspecified Status: Acute Plan The patient presented to the emergency department with symptomatic anemia after she was found to have a low hemoglobin on labs drawn yesterday for evaluation of fatigue. Labs, imaging, EKG, and all reports were personally reviewed. She had previously been on iron supplementations however her iron levels were elevated on labs done in February and she was told to stop taking ferrous sulfate. The last couple of weeks she has been feeling fatigued and her iron levels yesterday were less than 10 and she was profoundly anemic as above. She will be transfused 2 units packed red blood cells and will repeat H&H thereafter. Ferritin level pending and depending on that we would consider Venofer infusion. She is on chronic anticoagulation given to unprovoked and rather large pulmonary emboli, the last being in April 2022. Presumably she has occult GI blood loss though her stool was brown and Hemoccult negative on rectal exam today done in the ED. External hemorrhoids were noted though she reports that they very rarely bleed small amounts if and when she has to strain for a bowel movement. Hold apixaban for now. Check stool for occult blood. Dr. Wells has been consulted and his input is appreciated. She would probably benefit from GI referral as an outpatient for upper and lower endoscopy. Vital signs have been stable. Her home medications will be reviewed and resumed as appropriate. 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 Subjective Date/time seen: 05/10/23 15:45 Interval history: The patient presented to the emergency department with symptomatic anemia after she was found to have a low hemoglobin on labs drawn yesterday for evaluation of fatigue. Labs, imaging, EKG, and all reports were personally reviewed. She had previously been on iron supplementations however her iron levels were elevated on labs done in February and she was told to stop taking ferrous sulfate. The last couple of weeks she has been feeling fatigued and her iron levels yesterday were less than 10 and she was profoundly anemic as above. She will be transfused 2 units packed red blood cells and will repeat H&H thereafter. Ferritin level pending and depending on that we would consider Venofer infusion. She is on chronic anticoagulation given to unprovoked and rather large pulmonary emboli, the last being in April 2022. Presumably she has occult GI blood loss though her stool was
[2023-05-10] MEDS: ATORVASTATIN 40 MG TABLET PO (20:18)
[2023-05-10 21:30] VITALS: BP 142/72; PULSE 93; RESP 14; TEMP 37.2; O2SAT 97
[2023-05-11 06:00] VITALS: BP 128/58; PULSE 80; RESP 14; TEMP 37.3; O2SAT 96
[2023-05-11 07:23] LABS: Basophils Absolute Auto 0.1 K/mm3 (0.0-0.1); Basophils Percent Auto 1.2 % (0.2-1.2); Eosinophils Absolute Auto 0.3 K/mm3 (0-0.3); Eosinophils Percent Auto 4.5 % (0-4.4); Hematocrit 27.2 % (37.0-47.0); Hemoglobin 7.9 g/dL (12.0-15.0); Immature Granulocyte Absolute 0.03 K/mm3 (0.00-0.031); Immature Granulocyte Percent A 0.4 % (0-0.5); Lymphocytes Absolute Auto 1.18 K/mm3 (0.9-3.2); Mean Corpuscular Hemoglobin 23.9 pg (26-34); Mean Corpuscular Volume 82.4 fl (80-100); Mean Platelet Volume 9.1 fl (7.4-10.4); Monocytes Absolute Auto 0.9 K/mm3 (0.1-0.6); Monocytes Percent Auto 12.2 % (2.6-8.5); Neutrophils Absolute Auto 4.5 K/mm3 (1.3-6.7); Neutrophils Percent Auto 64.7 % (45.5-73.1); Nucleated Red Blood Cells Perc 0.3 % (0.0-0.2); Platelet Count Result 327 k/mm3 (150-375); Red Cell Distribution Width 21.7 % (11.5-14.5)
[2023-05-11 07:34] LABS: Anion Gap 5 mmol/L (8-16); Blood Urea Nitrogen 10 mg/dL (7-17); Calcium 8.3 mg/dL (8.4-10.2); Carbon Dioxide 27 mmol/L (22-30); Chloride 107 mmol/L (98-107); Estimated CRCL calculation 47 ml/min; Estimated Glomerular Filt Rate > 60; Glucose 88 mg/dL (65-110); Magnesium 2.1 mg/dL (1.6-2.3); Potassium 3.6 mmol/L (3.4-5.0); Sodium 139 mmol/L (137-145)
[2023-05-11 07:45] LABS: Hypochromasia 1+ (NORMAL); Platelet Estimate Adequate (Adequate)
[2023-05-11 07:46] LABS: Anisocytosis 2+ (NORMAL); Poikilocytosis 1+ (NORMAL); Schistocytes None Seen (NORMAL)
[2023-05-11 08:52] VITALS: PULSE 92
[2023-05-11] MEDS: CYANOCOBALAMIN 1,000 MCG TABLET 1000 MCG PO (08:52)
[2023-05-11] MEDS: METOPROLOL SUCCINATE EXT REL 25 MG TABCR PO (08:52)
[2023-05-11] MEDS: FERROUS SULFATE 325 MG TABLET DR PO (08:52)
--- NOTE | 2023-05-11 10:44 | PM.PNGS ---
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 Liver biopsy still pending. H/H remain stable. OK to discharge from surgical standpoint. Resume anticoagulation at Hem/Onc discretion. Will refer patient to Dr. Panchal, Colorectal Surgeon at [facility] for further evaluation and possible combined treatment of liver mass and colon cancer. Follow up with me as needed. (2) Liver mass: Code(s): R16.0 - Hepatomegaly, not elsewhere classified Status: Acute (3) Iron deficiency anemia: Qualifiers: Iron deficiency anemia type: chronic blood loss Qualified Code(s): D50.0 - Iron deficiency anemia secondary to blood loss (chronic) Code(s): D50.9 - Iron deficiency anemia, unspecified Status: Acute (4) Chronic anticoagulation: Code(s): Z79.01 - terminal computer operator (current) use of anticoagulants Status: Acute Subjective Subjective Date/Time Seen: 05/11/23 10:44 Interval history: Doing well after liver biopsy yesterday. No signs of hematochezia or melena. Tolerating diet. Exam GI: Inspection: non-distended GI Palp: Yes Soft to palpation, No Tenderness to palpation present (GI) and No Guarding due to palpation present (GI) Auscultation: normal bowel sounds Objective Data Vital Signs Vital Signs: Vital Signs - 24 hr 05/10/23 13:48 05/10/23 21:30 05/10/23 20:00 Temperature 36.3 C L 37.2 C Pulse Rate 83 93 Respiratory Rate 16 14 Blood Pressure 144/75 H 142/72 H Pulse Oximetry 97 97 Oxygen Delivery Room Air 05/11/23 06:00 05/11/23 08:52 Temperature 37.3 C Pulse Rate 80 92 Respiratory Rate 14 Blood Pressure 128/58 L Pulse Oximetry 96 Oxygen Delivery Intake/Output Intake/Output: Intake & Output 05/08/23 05/09/23 05/10/23 05/11/23 23:59 23:59 23:59 23:59 Intake Total 1960 1115 1330 990 Output Total 1100 Balance 860 1115 1330 990 Meds/Results Medications: Active Medications Generic Name Dose Route Start Last Admin Trade Name Freq PRN Reason Stop Dose Admin Acetaminophen 650 mg 05/05/23 14:28 Acetaminophen 325 Mg Tablet PO Q6H PRN Mild Pain (1-3) or Fever Atorvastatin Calcium 40 mg 05/05/23 21:00 05/10/23 20:18 Atorvastatin 40 Mg Tablet PO 40 mg HS NEMESIO Administration Cyanocobalamin 1,000 mcg 05/06/23 09:00 05/11/23 08:52 Cyanocobalamin 1,000 Mcg Tablet PO 1,000 mcg DAILY NEMESIO Administration Ferrous Sulfate 325 mg 05/06/23 09:00 05/11/23 08:52 Ferrous Sulfate [address] PO 325 mg BID NEMESIO Administration Metoprolol Succinate 25 mg 05/06/23 09:00 05/11/23 08:52 Metoprolol Succinate Ext Rel 25 Mg Tabcr PO 25 mg DAILY NEMESIO Administration Radiology Results: ITS Impressions Chest/Abdomen/Pelvis CT 05/10/23 08:26 Impression: Suspected 5.0 x 4.1 cm cecal mass, as detailed above, which would be suspicious for adenocarcinoma. Consider colonoscopy for tissue sampling, if not already performed. 2.5 cm right hepatic lobe mass, highly suspicious for metastasis. Consider tissue sampling to establish a histologic diagnosis, as clinically indicated. Large hiatal hernia, containing most of the stomach. Liver Biopsy Ultrasound 05/10/23 14:17 IMPRESSION: 1. Successful Ultrasound-guided biopsy of a 2.5 cm right hepatic mass. Labs Labs: Laboratory Results - last 24 hr 05/11/23 06:51 WBC 7.0 RBC 3.30 L Hgb 7.9 L Hct 27.2 L MCV 82.4 MCH 23.9 L MCHC 29.0 L RDW 21.7 H Plt Count 327 MPV 9.1 Immature Gran % (Auto) 0.4 Neut % (Auto) 64.7 Lymph % (Auto) 17.0 L [place] % (Auto) 12.2 H Eos % (Auto) 4.5 H Baso % (Auto) 1.2 Lymph # (Auto) 1.18 [place] # (Auto) 0.9 H Eos # (Auto) 0.3 Baso # (Auto) 0.1 Abs Immat Gran (auto) 0.03 Absolute Neuts (auto) 4.5 Absolute Nucleated RBC
--- NOTE | 2023-05-11 11:29 | PM.DS ---
DS: Admitting Diagnosis Discharge Date 05/11/2023 Admitting Diagnosis Abnormal lab DS: Discharge Diagnosis Discharge Diagnosis (1) Symptomatic anemia: Code(s): D64.9 - Anemia, unspecified Status: Acute (2) Iron deficiency anemia: Qualifiers: Iron deficiency anemia type: chronic blood loss Qualified Code(s): D50.0 - Iron deficiency anemia secondary to blood loss (chronic) Code(s): D50.9 - Iron deficiency anemia, unspecified Status: Acute (3) Chronic anticoagulation: Code(s): Z79.01 - ferry terminal supervisor (current) use of anticoagulants Status: Acute (4) Hypertension: Code(s): I10 - Essential (primary) hypertension Status: Acute (5) Hyperlipidemia: Code(s): E78.5 - Hyperlipidemia, unspecified Status: Acute Plan The patient presented to the emergency department with symptomatic anemia after she was found to have a low hemoglobin on labs drawn yesterday for evaluation of fatigue. Labs, imaging, EKG, and all reports were personally reviewed. She had previously been on iron supplementations however her iron levels were elevated on labs done in February and she was told to stop taking ferrous sulfate. The last couple of weeks she has been feeling fatigued and her iron levels yesterday were less than 10 and she was profoundly anemic as above. She will be transfused 2 units packed red blood cells and will repeat H&H thereafter. Ferritin level pending and depending on that we would consider Venofer infusion. She is on chronic anticoagulation given to unprovoked and rather large pulmonary emboli, the last being in April 2022. Presumably she has occult GI blood loss though her stool was brown and Hemoccult negative on rectal exam today done in the ED. External hemorrhoids were noted though she reports that they very rarely bleed small amounts if and when she has to strain for a bowel movement. Hold apixaban for now. Check stool for occult blood. Dr. Wells has been consulted and his input is appreciated. She would probably benefit from GI referral as an outpatient for upper and lower endoscopy. Vital signs have been stable. Her home medications will be reviewed and resumed as appropriate. 05/10/2023 interval history; upon arrival patient hgb was 6 and patient was given 2 units of PRBC and her Hgb was up to 8 and repeat hgb this morining is 8.9 most likely due to hemoconcentration as patient is NPO for EGD and colonoscopy, concerning for on going bleeding, patient is chronically anticoagulated with Eliquis for chronic PE which is on hold, Patient never had colonoscopy or EGD patient was seen by GI, patient had EGD which was normal, however colonoscopy showed fungating cecal mass, seen by surgeon and oncologist, there is also a lesion on her liver suspicious for metastasis, liver biopsy was done today pending pathology report and further recommendations to follow, Patient with very low iron, gave venofer 300mg, patient will be seen by emergency crew supervisor, patient is clinically stable will repeat the hemoglobin, will be seen GI and Hematology and further recommendation to follow. DS: Summary Hospital Course Reason for hospitalization: Abnormal labs. 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 She had a routine wellness visit in February and labs at that time showed that her hemoglobin had dropped from 12.5 to 9.1. Anemia studies were ordered and her iron level was elevated at 296 and she was told to stop taking her ferrous sulfate supplementation which she had been on since last fall. The last week or so she has become fatigued and weak and she had labs drawn yesterday which showed that her hemoglobin was 5.9 and she was directed to
== END 2023-05-11 12:55 | disposition home or self-care (01) | DRG 375 ==
LOC: ANHED 12:51 → ANH3MEDSUR 14:05
PROVIDERS: Internal Medicine Gastroenterology; Physician Assistant; Preventive Medicine Aerospace Medicine; Admitting Provider Internal Medicine; Emergency Provider Physician Assistant; PCP Internal Medicine; Visit Provider Family Medicine
PROC: 0DJ08ZZ Inspection of Upper Intestinal Tract, Via Natural or Artificial Opening Endoscopic (ICD-10-PCS; CPT 43235; principal; 2023-05-09 14:15)
DX: C18.0 Malignant neoplasm of cecum (principal); C78.7 Secondary malignant neoplasm of liver and intrahepatic bile duct; D50.0 Iron deficiency anemia secondary to blood loss (chronic); I10 Essential (primary) hypertension; E78.5 Hyperlipidemia, unspecified; K44.9 Diaphragmatic hernia without obstruction or gangrene; K64.8 Other hemorrhoids; Z86.711 Personal history of pulmonary embolism; Z90.49 Acquired absence of other specified parts of digestive tract; Z86.73 Personal history of transient ischemic attack (TIA), and cerebral infarction without residual deficits; Z96.653 Presence of artificial knee joint, bilateral; Z79.01 Long term (current) use of anticoagulants
CPT/HCPCS: 36415; 36430; 47000; 71260; 74177; 76942; 80048; 80053; 82274; 82378; 82607; 82728; 82746; 83540; 83550; 83735; 84443; 85014; 85018; 85025; 85027; 85610; 85730; 86850; 86900; 86901; 86923; 88305; 88307; 96360; 96361; 99285; A9270; G0378; J1756; J2001; J2704; J7050; J7120; P9016; Q9967

== ENCOUNTER 2024-06-16 11:16 | Emergency (ER) | payer MEDICARE, BC, SELFPAY ==
--- NOTE | ~2024-06-16 | XR_ITS ---
Left wrist Technique: PA, oblique, lateral, and ulnar deviation views were obtained. Clinical History: Swelling Findings: No acute fracture or dislocation is seen. 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 There is moderate degenerative change of the triscaphe joint. There is chondrocalcinosis of the TFCC. Impression: Degenerative changes, as above, worst at the first CMC joint. Reviewed, dictated and finalized at location . Impression: Degenerative changes, as above, worst at the first CMC joint.
[2024-06-16 11:33] VITALS: BP 164/85; PULSE 89; RESP 16; TEMP 36.4; O2SAT 99
--- NOTE | 2024-06-16 12:06 | ED.UPPEXIN ---
HPI - Extremity Injury (Upper) General Chief Complaint: Extremity Injury, Upper Stated Complaint: Left Hand Pain Time Seen by Provider: 06/16/24 12:06 Source: patient Mode of arrival: ambulatory Limitations: no limitations History of Present Illness HPI narrative: 88-year-old female for history of adenocarcinoma of cecum, PE, and hypertension presented for complaint of left wrist swelling and pain. Onset yesterday. Endorses decreased range of motion due to the pain. She denies known injury. Has taken Tylenol with improvement in pain. She denies redness, numbness, tingling, weakness of the hand. Related Data Home Medications Medication Instructions Recorded Confirmed atorvastatin 40 mg tablet 40 mg PO HS 07/20/20 06/16/24 apixaban 5 mg tablet (Eliquis) 5 mg PO BID 05/03/22 06/16/24 cyanocobalamin (vitamin B-12) 1,000 mcg PO DAILY 05/05/23 06/16/24 1,000 mcg tablet (Vitamin B-12) metoprolol succinate 25 mg 25 mg PO DAILY 05/05/23 06/16/24 tablet,extended release 24 hr trifluridine 20 mg-tipiracil 8.19 tablet PO 06/16/24 mg tablet (Lonsurf) Allergies Allergy/AdvReac Type Severity Reaction Status Date / Time No Known Allergies Allergy Verified 06/16/24 11:50 Review of Systems Review of Systems: CONSTITUTIONAL: Denies body aches, fever, chills CARDIOVASCULAR: Denies chest pain, palpitations, or edema. RESPIRATORY: Denies cough or dyspnea. SKIN: Denies rash, itching, or wounds. MUSCULOSKELETAL: per HPI NEUROLOGIC: Denies headache, numbness, tingling, or weakness. All systems reviewed & are unremarkable except as noted in HPI and below PMFSH Past Medical History Medical History Chronic anticoagulation Hyperlipidemia Hypertension Pulmonary embolism (06/26/20) June 2020 and April 2022. Stroke Surgical History Surgical History History of appendectomy (1950) History of bilateral knee replacement (01/16/01) Family History Family History Father Heart disease Mother Heart disease Sibling Hypertension Social History Social History Social History: Surrogate medical decision maker: Talisha Ramírez, daughter. Code status: Full code. Smoking status: Never smoker Second hand tobacco smoke exposure: No Alcohol intake: never Substance use: never Lack of Transportation: No Lack of Food: Never True Current Housing: I Have Housing Concerned About Future Housing: No Difficulty Paying Gas/Electric Bills: No Difficulty Paying for Meds: No Currently Unemployed: No Education: High School Diploma/GED Difficulty w/ Childcare or Family Care: No Spiritual care concerns: No Comments At time of signature, I have reviewed and agree with nursing past medical, surgical, social and family history unless otherwise noted. Please see nursing chart for further information. There is no relevant family history pertinent to the presenting complaint Exam Narrative: GENERAL: Well-appearing, and in no acute distress. CHEST: Speaks in full sentences. No respiratory distress. HEART: Regular rate and rhythm. Normal and equal peripheral pulses. EXTREMITIES: Left hand has normal strength and sensation,slightly limited range of motion with flexion/extension/rotation of wrist due to pain with movement. Tender with palpation 1st-2nd metacarpals with mild swelling and warmth. No erythema or ecchymosis. No open wounds, or obvious deformity; alignment normal, pulse palpable and equal bilaterally, skin warm, dry, pink. Capillary refill less than 3 seconds. RLE 2+ pitting edema to ankle and foot; LLE 1+ pitting edema to ankle and foot SKIN: Warm, dry, no rash. NEURO: Alert and oriented x3. PSYCH: Normal mood and affect Extrem: Hand/finger images:
== END 2024-06-16 12:54 | disposition home or self-care (01) ==
PROVIDERS: Emergency Provider Nurse Practitioner Family
DX: M25.532 Pain in left wrist (principal); M25.432 Effusion, left wrist; E78.5 Hyperlipidemia, unspecified; I10 Essential (primary) hypertension; Z86.711 Personal history of pulmonary embolism; Z86.73 Personal history of transient ischemic attack (TIA), and cerebral infarction without residual deficits; Z96.653 Presence of artificial knee joint, bilateral; Z79.01 Long term (current) use of anticoagulants
CPT/HCPCS: 73110; 99213; G0463

== ENCOUNTER 2024-10-02 12:32 | Inpatient (IN) | payer MEDICARE, BC, SELFPAY ==
--- NOTE | ~2024-10-02 | XR_ITS ---
EXAMINATION: XR chest 2V DATE: 10/02/2024 13:49 INDICATION: Weakness TECHNIQUE: frontal and lateral views of the chest were obtained. COMPARISON: Chest radiograph dated 06/26/[address] dated 05/10/2023 FINDINGS: Air-fluid level within a large retrocardiac while hernia. There are small bilateral pleural effusions at the bilateral posterior sulci with mild adjacent compressive atelectasis in the dependent lower l ungs. Round density, potentially an ingested pill within the hiatal hernia. Indeterminate 1 cm subtle nodular opacity projecting over the left costophrenic angle. Heart size is normal. Right internal ju gular central venous port catheter with distal tip near the superior cavoatrial junction. IMPRESSION: 1. Small bilateral pleural effusions with mild dependent compressive atelectasis in the lower lungs. 2. Indeterminate 1 cm nodular opacity left lower lung zone. Recommend chest CT for further evaluation . 3. Large hiatal hernia. Reviewed, dictated and finalized at location A. [facility]ILITY NURSE IMPRESSION: 1. Small bilateral pleural effusions with mild dependent compressive atelectasi s in the lower lungs. 2. Indeterminate 1 cm nodular opacity left lower lung zone. Recommend chest CT for further evaluation. 3. Large hiatal hernia.
[2024-10-02 12:33] VITALS: BP 107/63; PULSE 92; RESP 17; TEMP 36.4; O2SAT 99
--- NOTE | 2024-10-02 12:53 | ECG_ITS ---
Test Date: 2024-10-02 12:49:24 Measurements Intervals [place] Rate: 90 P: 30 [place]: 147 QRS: -51 QRSD: 141 T: 67 QT: 392 QTc: 482 Interpretive Statements SINUS RHYTHM RIGHT BUNDLE BRANCH BLOCK [120+ ms QRS DURATION, UPRIGHT V1, 40+ ms S IN I/aVL/V4/V5/V6] LEFT ANTERIOR FASCICULAR BLOCK [QRS AXIS <= -45, QR IN I, RS IN II] No previous ECG available for comparison Electronically Signed On 10-02-2024 14:47:54 CONSULTING TECHNICAL MANAGER by Tom Rendon M.D.
[2024-10-02 13:17] LABS: Basophils Percent Auto 0.1 % (0.2-1.2); Eosinophils Percent Auto 0.3 % (0-4.4); Hematocrit 32.6 % (37.0-47.0); Hemoglobin 10.7 g/dL (12.0-15.0); Immature Granulocyte Absolute 0.07 K/mm3 (0.00-0.031); Immature Granulocyte Percent A 0.7 % (0-0.5); Lymphocytes Absolute Auto 0.59 K/mm3 (0.9-3.2); Mean Corpuscular HGB Conc 32.8 g/dl (32-36); Mean Corpuscular Hemoglobin 31.7 pg (26-34); Mean Corpuscular Volume 96.4 fl (80-100); Mean Platelet Volume 10.5 fl (7.4-10.4); Monocytes Absolute Auto 0.8 K/mm3 (0.1-0.6); Monocytes Percent Auto 8.4 % (2.6-8.5); Neutrophils Absolute Auto 8.4 K/mm3 (1.3-6.7); Neutrophils Percent Auto 84.5 % (45.5-73.1); Platelet Count Result 188 k/mm3 (150-375); Red Blood Count 3.38 M/mm3 (4.2-5.4); Red Cell Distribution Width 17.5 % (11.5-14.5); White Blood Count 9.9 K/mm3 (4.5-10.0)
[2024-10-02 13:38] LABS: Alanine Aminotransferase 92 U/L (6-35); Albumin Level 2.8 g/dL (3.5-5.1); Alkaline Phosphatase 551 U/L (38-126); Anion Gap 11 mmol/L (4-12); Aspartate Amino Transferase 437 U/L (14-36); Bilirubin,Total 1.7 mg/dL (0.2-1.3); Blood Urea Nitrogen 61 mg/dL (7-17); Calcium 8.2 mg/dL (8.4-10.2); Carbon Dioxide 16 mmol/L (22-30); Chloride 101 mmol/L (98-107); Estimated CRCL calculation 12 ml/min; Estimated Glomerular Filt Rate 13; Glucose 83 mg/dL (65-110); Potassium 5.4 mmol/L (3.4-5.0); Sodium 128 mmol/L (137-145)
[2024-10-02] MEDS: SODIUM CHLORIDE 0.9% IV 1,000 ML 999 ML IV CONT (14:07)
--- NOTE | 2024-10-02 14:08 | ED.WEAKNESS ---
HPI - Weakness General Chief complaint: Weakness Stated complaint: weakness Time Seen by Provider: 10/02/24 12:51 Source: patient and family Mode of arrival: wheelchair Limitations: no limitations History of Present Illness HPI Narrative: 89-year-old with stage IV liver cancer presents to the ER with a complaint of generalized weakness she states her both lower extremities are extremely weak to ambulate. She states that she stop the chemotherapy 2 weeks ago and now considering hospice she had 2 rounds of chemo 2 different times and it was not helping. She states for the past few days her oral intake has markedly reduced and she is now only able to drink about 3/4 can of boost . She also stated that she signed paper for hospice care but has not enrolled with [facility] hospice care she presently denies any chest pain or shortness of breath has mild nausea . MD Complaint: generalized weakness and difficulty walking Onset (ago): day(s) Duration: constant Location: generalized Migration: none Severity: moderate Relieving factors: none Exacerbating factors: none Context: recent illness Associated symptoms: denies other symptoms Related Data Home Medications ?Medication ?Instructions ?Recorded ?Confirmed ?Last Taken ?Type atorvastatin 40 mg tablet 40 mg PO HS 07/20/20 06/16/24 Unknown History apixaban 5 mg tablet (Eliquis) 5 mg PO BID 05/03/22 06/16/24 05/05/23 09:00 History cyanocobalamin (vitamin B-12) 1,000 mcg PO DAILY 05/05/23 06/16/24 Unknown History 1,000 mcg tablet (Vitamin B-12) metoprolol succinate 25 mg 25 mg PO DAILY 05/05/23 06/16/24 05/05/23 History tablet,extended release 24 hr trifluridine 20 mg-tipiracil 8.19 tablet PO 06/16/24 Unknown History mg tablet (Lonsurf) Allergies Allergy/AdvReac Type Severity Reaction Status Date / Time No Known Allergies Allergy Verified 10/02/24 13:26 Review of Systems Review of Systems: All systems reviewed & are unremarkable except as noted in HPI and below Constitutional: Constitutional: Reports no additional constitutional complaints Eyes: Eyes: Reports no additional eye complaints ENT: Reports system reviewed and no additional complaints, except as documented Cardiovascular: Cardiovascular: Reports no additional cardiovascular complaints Respiratory: Respiratory: Reports no additional respiratory complaints Gastrointestinal: Gastrointestinal: Reports as per HPI Musculoskeletal: Musculoskeletal: Reports no additional musculoskeletal complaints Neurologic: Reports system reviewed and no additional complaints, except as documented PMFSH Past Medical History Medical History Chronic anticoagulation Hypertension Pulmonary embolism (06/26/20) June 2020 and April 2022. Hyperlipidemia Stroke Surgical History Surgical History History of bilateral knee replacement (01/16/01) History of appendectomy (1950) Family History Family History Father Heart disease Mother Heart disease Sibling Hypertension Social History Social History Social History: Surrogate medical decision maker: Talisha Ramírez, daughter. Code status: Full code. Smoking status: Never smoker Second hand tobacco smoke exposure: No Alcohol intake: never Substance use: never Lack of Transportation: No Lack of Food: Never True Current Housing: I Have Housing Concerned About Future Housing: No Difficulty Paying Gas/Electric Bills: No Difficulty Paying for Meds: No Currently Unemployed: No Education: High School Diploma/GED Difficulty w/ Childcare or Family Care: No Spiritual care concerns: No Exam Narrative: GENERAL: Well-appearing, well-nourished, and in no acute distress. HEAD: Normocephalic, atraumatic. EYES: PERRLA and EOMI. ENT: Nares clear, no rhinorrhea or epistaxis. Mucous membranes moist. NECK: Supple. CHEST: Clear to auscultation. No respiratory distress. HEART: Regular rate and rhythm. No murmur heard. Normal peripheral pulses. ABDOMEN: Soft, nontender, nondistended, normal active bowel sounds. EXTREMITIES: Normal range of motion. 2+ edema SKIN: Warm, dry, no rash. NEURO: No focal deficits. Alert and oriented x3. PSYCH: Normal mood and affect. Course Course Emergency Course: And patient and the family about her lab work. Agreeable with admission for hydration will consider hospice consult Discussed with hospitalist accepted the patient Vital Signs Vital signs: Vital Signs Temperature 36.4 C L 10/02/24 12:33 Pulse Rate 92 10/02/24 12:33 Respiratory Rate 17 10/02/24 12:33 Blood Pressure 107/63 12/18/24 12:33 Pulse Oximetry 99 10/02/24 12:33 Oxygen Delivery Room Air 10/02/24 12:33 Temperature 36.4 C L 10/02/24 12:33 Pulse Rate 92 10/02/24 12:33 Respiratory Rate 17 10/02/24 12:33 Blood Pressure 107/63 10/02/24 12:33 Pulse Oximetry 99 10/02/24 12:33 Oxygen Delivery Room Air 10/02/24 12:33 MDM - Weakness Differential Diagnosis Differential diagnosis: Likely dehydration Medical Records Attestation: I reviewed the patient's medical records. Lab Data Attestation: I reviewed the patient's lab results. 10/02/24 13:12 10/02/24 13:12 Labs: Lab Results 10/02/24 Range/Units 13:12 WBC 9.9 (4.5-10.0) K/mm3 RBC 3.38 L (4.2-5.4) M/mm3 Hgb 10.7 L (12.0-15.0) g/dL Hct 32.6 L (37.0-47.0) % MCV 96.4 (80-100) fl MCH 31.7 (26-34) pg MCHC 32.8 (32-36) g/dl RDW 17.5 H (11.5-14.5) % Plt Count 188 (150-375) k/mm3 MPV 10.5 H (7.4-10.4) fl Immature Gran % (Auto) 0.7 H (0-0.5) % Neut % (Auto) 84.5 H (45.5-73.1) % Lymph % (Auto) 6.0 L (18.3-44.2) % [place] % (Auto) 8.4 (2.6-8.5) % Eos % (Auto) 0.3 (0-4.4) % Baso % (Auto) 0.1 L (0.2-1.2) % Lymph # (Auto) 0.59 L (0.9-3.2) K/mm3 [place] # (Auto) 0.8 H (0.1-0.6) K/mm3 Eos # (Auto) 0.0 (0-0.3) K/mm3 Baso # (Auto) 0.0 (0.0-0.1) K/mm3 Abs Immat Gran (auto) 0.07 H (0.00-0.031) K/mm3 Absolute Neuts (auto) 8.4 H (1.3-6.7) K/mm3 Absolute Nucleated RBC 0.000 (0.0-0.012) K/mm3 Nucleated RBC % 0.0 (0.0-0.2) % Sodium 128 L (137-145) mmol/L Potassium 5.4 H (3.4-5.0) mmol/L Chloride 101 (98-107) mmol/L Carbon Dioxide 16 L (22-30) mmol/L Anion Gap 11 (4-12) mmol/L BUN 61 H D (7-17) mg/dL Creatinine 3.30 H (0.7-1.0) mg/dL Estim Creat Clear Calc 12 ml/min Estimated GFR 13 L (59 - ) Glucose 83 (65-110) mg/dL Calcium 8.2 L (8.4-10.2) mg/dL Total Bilirubin 1.7 H (0.2-1.3) mg/dL AST 437 H (14-36) U/L ALT 92 H (6-35) U/L Alkaline Phosphatase 551 H (38-126) U/L Total Protein 6.0 L (6.3-8.2) g/dL Albumin 2.8 L (3.5-5.1) g/dL Imaging Data Radiologist's impression: ITS Impressions Chest X-Ray 10/02/24 13:58 IMPRESSION: 1. Small bilateral pleural effusions with mild dependent compressive atelectasis in the lower lungs. 2. Indeterminate 1 cm nodular opacity left lower lung zone. Recommend chest CT for further evaluation. 3. Large hiatal hernia. Discharge Plan Discharge Clinical Impression: JUSTIN (acute kidney injury), Weakness Cancer of liver Qualifiers: Liver malignancy type: unspecified liver malignancy Qualified Code(s): C22.9 - Malignant neoplasm of liver, not specified as primary or secondary Patient Disposition: Still a Patient Condition: Stable Patient Language: [place] Prescriptions: No Action Lonsurf 20-8.19 mg tablet PO atorvastatin 40 mg tablet 40 mg PO HS Eliquis 5 mg tablet 5 mg PO BID cyanocobalamin (vitamin B-12) [Vitamin B-12] 1,000 mcg Tablet 1,000 mcg PO DAILY metoprolol succinate 25 mg tablet extended release 24 hr 25 mg PO DAILY ferrous sulfate 325 mg (65 mg iron) Tablet,Delayed Release (Dr/Ec) 325 mg PO BID Qty: 60 0RF Follow-up/Referrals: UNKNOWN,DOCTOR [Primary Care Provider] - Time of Disposition: 14:48
--- NOTE | 2024-10-02 15:15 | P.HP_ITS ---
H&P: HPI History of Present Illness Date/Time: 10/02/24 15:15 Chief Complaint: Generalized Weakness, Poor Appetite Narrative: 89 y/o F presents here with Generalized weakness and poor appetite with PMH of metastatic cecum adenocarcinoma, Pulmonary embolism (2021), CVA, HLD, HTN, partial colectomy (jun 2023) and chronic anticoagulation. The patient presents here from home via EMS for further evaluation of generalized weakness, poor appetite, decreased activity, and bilateral lower extremity swelling. She initially started with poor appetite, has been ongoing for quite some time . Started chemo last Jul (2022). Has since been on 3 different types without improvement. Then told she could participate in a clinical study, she received two treatments. Repeat imaging showed met to the lung. After this she was told there was no indication to continue chemo treatments. The weakness started with the clinical trial, participated in this in Jul. Decreased activity has been ongoing but significantly worsened in the last 2-3 weeks. Leg swelling started around 09/23. 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 She has been receiving her oncology care at [facility] with June Collins MD. Recently stopped chemo treatments within the last two weeks due ineffectiveness of treatments. She has been in the process of getting set up with hospice. She underwent a pre-assessment on Monday with [facility]. Initial VS at presentation: 97.5? F, HR 92, RR 17, 107/63, and 99% on RA. ED workup showed: No leukocytosis, hemoglobin 10.7, sodium 128, potassium 5.4, creatinine 3.3 and GFR 13 (previously 0.8 and GFR >60 on 04/2023), total bilirubin 1.7, AST 437, ALT 92, alk-phos 551, albumin 2.8. CXR showed small bilateral pleural effusions, indeterminate 1 cm nodular opacity in the left lower lung zone, and a large hiatal hernia. Review of Systems Review of Systems: All systems reviewed & are unremarkable except as noted in HPI and below PMFSH Past Medical History Medical History (Updated 10/02/24 @ 23:04 by Marianna Arzola, BETHANY) Hyperlipidemia Iron deficiency anemia Colon cancer metastasized to liver Adenocarcinoma of cecum Anemia Chronic anticoagulation Hypertension Pulmonary embolism (06/26/20) June 2020 and April 2022. 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 Code status: Full code. Smoking status: Never smoker Second hand tobacco smoke exposure: No Alcohol intake: never Substance use: never Do You Feel Safe in your Home?: Yes Lack of Transportation: YES Lack of Food: Never True Current Housing: I Have Housing Concerned About Future Housing: No Difficulty Paying Gas/Electric Bills: No Difficulty Paying for Meds: No Currently Unemployed: No Education: High School Diploma/GED Difficulty w/ Childcare or Family Care: No Spiritual care concerns: No Meds Home Medications and Allergies Home Medications ?Medication ?Instructions ?Recorded ?Confirmed ?Type atorvastatin 40 mg tablet 40 mg PO HS 07/20/20 10/02/24 History apixaban 5 mg tablet (Eliquis) 5 mg PO BID 05/03/22 10/02/24 History cyanocobalamin (vitamin B-12) 1,000 mcg PO DAILY 05/05/23 10/02/24 History 1,000 mcg tablet (Vitamin B-12) metoprolol succinate 25 mg 25 mg PO DAILY 05/05/23 10/02/24 History tablet,extended release 24 hr ferrous sulfate 325 mg (65 mg 325 mg PO BID #60 tabs 05/11/23 10/02/24 Rx iron) tablet,delayed release Allergies Allergy/AdvReac Type Severity Reaction Status Date / Time No Known Allergies Allergy Verified 10/02/24 13:26 Vital Signs Vital Signs - 24 hr 10/02/24 12:33 Temperature 97.5 F L Pulse Rate 92 Respiratory Rate 17 Blood Pressure 107/63 Pulse Oximetry 99 Oxygen Delivery Room Air Exam Const: General: comfortable and no acute distress Other: , elderly, frail, nontoxic appearance HENMT: Face/Nose/Sinus: Normal nares present Mouth: Yes dry mucous membranes Eyes: General: appearance normal, both eyes and all related structures Sclera: sclerae normal Pupils: Equal, round and reactive pupils present EOM: EOMs intact bilaterally Resp: Effort & Inspection: normal respiratory effort Auscultation: clear to auscultation bilaterally Cardio: Rate: regular rate Rhythm: regular rhythm Other: S1-S2 present without murmur, rub, ectopy GI: Other: Abdomen tight, nontender. Normoactive bowel sounds in all quadrants. Skin: General skin exam: normal color and no rashes or lesions noted Wounds: no wounds Neuro: Speech: normal speech Motor exam (neuro): 5/5 motor strength present throughout Sensory Exam: normal sensation Other: Generalized weakness, A&O x4 Extrem: Other: 3+ pitting edema to bilateral lower extr emities Psych: Mental Status: mental status grossly normal Affect: normal affect Other: Good insight and judgment, very pleasant H&P: Results Labs Labs: Short CBC 10/02/24 Range/Units 13:12 WBC 9.9 (4.5-10.0) K/mm3 Hgb 10.7 L (12.0-15.0) g/dL Hct 32.6 L (37.0-47.0) % Plt Count 188 (150-375) k/mm3 BMP 10/02/24 13:12 Sodium 128 L Potassium 5.4 H Chloride 101 Carbon Dioxide 16 L BUN 61 H D Creatinine 3.30 H Glucose 83 Calcium 8.2 L Liver Function 10/02/24 Range/Units 13:12 Total Bilirubin 1.7 H (0.2-1.3) mg/dL AST 437 H (14-36) U/L ALT 92 H (6-35) U/L Alkaline Phosphatase 551 H (38-126) U/L Albumin 2.8 L (3.5-5.1) g/dL Assessment and Plan Assessment and plan (1) Weakness: Code(s): R53.1 - Weakness Status: Acute Assessment and Plan: - suspect weakness secondary to poor PO intake r/t cancer - dietitian consulted for assistance with increased caloric intake/nutrition - IV fluids, currently has JUSTIN - UA pending - no pneumonia on CXR - reporting lower extremity weakness secondary to swelling, albumin low will replete (2) JUSTIN (acute kidney injury): Code(s): N17.9 - Acute kidney failure, unspecified Status: Acute Assessment and Plan: - creatinine 3.3 and GFR 13, previously 0.8 and GFR >60 on 04/2023 - reporting poor p.o. intake, initiate IV fluids: 1L bolus -> 150 mL/hr x1L -> 125 mL/hr - trend renal function - trend electrolytes, correct as needed (3) Adenocarcinoma of cecum: Code(s): C18.0 - Malignant neoplasm of cecum Status: Acute Assessment and Plan: - has stopped treatment - care coordination consult for assistance with finalizing hospice care - previously received oncology care at [facility] Plan Diet: regular GI Prophylaxis: not currently indicated DVT Prophylaxis: OLIVER as tolerated, continue home Eliquis Lines: peripheral Code Status: DNR Quality VTE Prophylaxis VTE prophylaxis: mechanical ordered and pharmacologic ordered Hospitalist [facility] Advance Care Plan I have confirmed that the patient's Advanced Care Plan is present, code status is documented, or surrogate decision maker is listed in patient medical record.: Yes Medication Reconciliation I have utilized all available resources to obtain, update and review the patients current medications (includes all prescriptions, OTC, herbals, cannabis, and nutritional supplements).: Yes
[2024-10-02] MEDS: SODIUM CHLORIDE 0.9% IV 1,000 ML 150 ML IV CONT (15:38)
[2024-10-02 15:44] LABS: Add Urine Microscopic? YES; Appearance Urine Cloudy (Clear); Bacteria Urine None Seen /hpf; Bilirubin Urine Negative (Negative); Blood Urine 3+ (Negative); Color Urine Dark Yellow (Yellow); Glucose Urine UA Negative (Negative); Hyaline Casts Urine Present /lpf; Ketones Urine Trace mg/dL (Negative); Leukocyte Esterase Ur Trace LEU/UL (Negative); Nitrate Urine Negative (Negative); Non Pathogenic Casts >20; Protein Urine 2+ mg/dL (Negative); RBC Urine 51-100 /hpf (0-2); Specific Grav Ur 1.015 (1.001-1.035); Squamous Epithelial Cell Urine None Seen /hpf (Few); WBC Urine 0-5 /hpf (0-3)
[2024-10-02 16:00] VITALS: BP 101/64; PULSE 84; RESP 18; O2SAT 99
--- NOTE | 2024-10-02 16:15 | ADMGEN ---
This patient, Leisa Sanchez, was admitted to [facility] Surg Room 325-02. Patient/family oriented to hospital policies and general routines including ID bracelet, bed and alarms, visiting hours, pain management, procedures, bathroom and other care routines, personal items, smoking policy, room service/diet, and visiting hours. Information on how to activate the Rapid Response Team has been discussed. Patient/Family are encouraged to report perceived risks to care and to ask questions if they do not understand what they are told or what they should do.
[2024-10-02 16:30] VITALS: BP 111/57; PULSE 82; RESP 18; TEMP 36.4; O2SAT 98
[2024-10-02 16:35] VITALS: BMI 32.0
--- NOTE | 2024-10-02 16:36 | PCCCNOTE ---
Called to the ED to discuss Hospice care with pt. She had [facility] come to her home yesterday to talk about going on hospice. She wanted to think about it and decide if she was ready or not. She had not signed any papers, but they did a preassessment on her. She is not ready to sign up at this time, possibly on discharge, but she is not sure yet. She is getting IV fluids for her renal function and she would like to see how she feels after that, before making a decision.
[2024-10-02] MEDS: ALBUMIN HUMAN 25% 25 GM/100 ML 100 ML IVPB (17:34)
[2024-10-02] MEDS: SODIUM CHLORIDE 0.9% IV 1,000 ML 125 ML IV CONT (17:34)
[2024-10-02] MEDS: CENTRAL LINE FLUSH 10 ML IV PUSH (20:45)
[2024-10-02 21:00] VITALS: BP 111/66; PULSE 93; RESP 14; TEMP 36.6; O2SAT 98
[2024-10-03] MEDS: SODIUM CHLORIDE 0.9% IV 1,000 ML 125 ML IV CONT (00:43)
[2024-10-03] MEDS: APIXABAN 5 MG TABLET PO ×2 (00:45→09:35)
[2024-10-03] MEDS: ATORVASTATIN 40 MG TABLET PO (00:45)
[2024-10-03] MEDS: ALBUMIN HUMAN 25% 25 GM/100 ML 100 ML IVPB ×2 (00:45→05:33)
[2024-10-03] MEDS: ACETAMINOPHEN 325 MG TABLET 650 MG PO (04:32)
[2024-10-03] MEDS: CENTRAL LINE FLUSH 10 ML IV PUSH ×3 (05:34→20:48)
[2024-10-03 06:00] VITALS: BP 97/54; PULSE 88; RESP 16; TEMP 36.3; O2SAT 95
[2024-10-03 06:27] LABS: Eosinophils Absolute Auto 0.1 K/mm3 (0-0.3); Eosinophils Percent Auto 0.6 % (0-4.4); Hematocrit 26.1 % (37.0-47.0); Hemoglobin 8.6 g/dL (12.0-15.0); Immature Granulocyte Absolute 0.09 K/mm3 (0.00-0.031); Immature Granulocyte Percent A 1.1 % (0-0.5); Lymphocytes Absolute Auto 0.66 K/mm3 (0.9-3.2); Lymphocytes Percent Auto 7.8 % (18.3-44.2); Mean Corpuscular Hemoglobin 31.6 pg (26-34); Mean Platelet Volume 10.2 fl (7.4-10.4); Monocytes Absolute Auto 0.7 K/mm3 (0.1-0.6); Monocytes Percent Auto 8.6 % (2.6-8.5); Neutrophils Percent Auto 81.9 % (45.5-73.1); Platelet Count Result 168 k/mm3 (150-375); Red Blood Count 2.72 M/mm3 (4.2-5.4); Red Cell Distribution Width 17.7 % (11.5-14.5); White Blood Count 8.5 K/mm3 (4.5-10.0)
[2024-10-03 06:43] LABS: Alanine Aminotransferase 64 U/L (6-35); Albumin Level 2.8 g/dL (3.5-5.1); Alkaline Phosphatase 405 U/L (38-126); Anion Gap 9 mmol/L (4-12); Aspartate Amino Transferase 292 U/L (14-36); Bilirubin,Total 1.7 mg/dL (0.2-1.3); Blood Urea Nitrogen 59 mg/dL (7-17); Calcium 7.8 mg/dL (8.4-10.2); Carbon Dioxide 16 mmol/L (22-30); Chloride 104 mmol/L (98-107); Estimated CRCL calculation 12 ml/min; Estimated Glomerular Filt Rate 14; Glucose 58 mg/dL (65-110); Sodium 129 mmol/L (137-145)
[2024-10-03 07:27] LABS: Glucose Point of Care 63 mg/dl (65-105)
[2024-10-03 07:54] LABS: Glucose Point of Care 83 mg/dl (65-105)
[2024-10-03] MEDS: FERROUS SULFATE 325 MG TABLET DR PO (09:35)
[2024-10-03] MEDS: METOPROLOL SUCCINATE EXT REL 25 MG TABCR PO (09:35)
[2024-10-03] MEDS: CYANOCOBALAMIN 1,000 MCG TABLET 1000 MCG PO (09:35)
[2024-10-03] MEDS: LOPERAMIDE HCL 2 MG CAPSULE PO ×3 (11:58→15:34)
--- NOTE | 2024-10-03 12:51 | PCDIET ---
Consult received for poor po intake. Pt is transitioning to hospice care. Will send Ensure compact TID for supplement per preference, chocolate flavor.
[2024-10-03 14:00] VITALS: BP 118/60; PULSE 87; RESP 16; TEMP 36.2; O2SAT 98
--- NOTE | 2024-10-03 14:56 | PM.IMPN ---
Progress Note: A&P Assessment and Plan (1) Weakness: Code(s): R53.1 - Weakness Status: Acute Assessment and Plan: Related to poor PO intake r/t cancer. Plan for hospice care at home. Hospice consult. (2) JUSTIN (acute kidney injury): Code(s): N17.9 - Acute kidney failure, unspecified Status: Acute Assessment and Plan: Noted. Plan for comfort care. (3) Adenocarcinoma of cecum: Code(s): C18.0 - Malignant neoplasm of cecum Status: Acute Assessment and Plan: Patient has stopped treatment. Hospice care Plan Code Status: DNR Subjective Date/time seen: 10/03/24 14:56 Interval history: 89yo female with metastatic cecum adenocarcinoma here for weakness. She is ready to set up care with hospice. No pain. Still has poor appetite. Also with diarrhea. Exam Narrative: AF 97.2 118/60 87 16 98% ra Gen - chronically ill appearing female in NARD Chest - distant BS. Port in the right upper chest CV - RRR S1/S2 Abd - Soft, protuberant and full Ext - 2+ bilateral pedal edema Psych - Nml mood and affect Skin - Warm and dry Objective Data Vital Signs Vital Signs: Vital Signs - 24 hr 10/02/24 16:00 10/02/24 16:30 10/02/24 16:35 Temperature 97.6 F Pulse Rate 84 82 Respiratory Rate 18 18 Blood Pressure 101/64 111/57 L Pulse Oximetry 99 98 Oxygen Delivery Room Air 10/02/24 20:00 10/02/24 21:00 10/03/24 06:00 Temperature 97.8 F 97.4 F L Pulse Rate 93 88 Respiratory Rate 14 16 Blood Pressure 111/66 97/54 L Pulse Oximetry 98 95 Oxygen Delivery Room Air 10/03/24 14:00 Temperature 97.2 F L Pulse Rate 87 Respiratory Rate 16 Blood Pressure 118/60 Pulse Oximetry 98 Oxygen Delivery Intake/Output Intake/Output: Intake & Output 09/30/24 10/01/24 10/02/24 10/03/24 23:59 23:59 23:59 23:59 Intake Total 1320 1433.8 Output Total 25 350 Balance 1295 1083.8 Meds/Results Medications: Active Medications Generic Name Dose Route Start Last Admin Trade Name Freq PRN Reason Stop Dose Admin Acetaminophen 650 mg 10/02/24 14:49 10/03/24 04:32 Acetaminophen 325 Mg Tablet PO 650 mg Q4H PRN Administration Mild Pain (1-3) or Fever Apixaban 5 mg 10/02/24 23:10 10/03/24 09:35 Apixaban 5 Mg Tablet PO 5 mg Q12HR NEMESIO Administration Cyanocobalamin 1,000 mcg 10/03/24 09:00 10/03/24 09:35 Cyanocobalamin 1,000 Mcg Tablet PO 1,000 mcg DAILY NEMESIO Administration Ferrous Sulfate 325 mg 10/03/24 09:00 10/03/24 09:35 Ferrous Sulfate [address] PO 325 mg BID NEMESIO Administration Heparin Sodium (Beef Lung) 50 units 10/03/24 09:00 10/03/24 09:40 Heparin Flush 50 Units/5 Ml Syringe IV PUSH Not Given QAM NEMESIO Heparin Sodium (Beef Lung) 50 units 10/02/24 13:17 Heparin Flush 50 Units/5 Ml Syringe IV PUSH PRN PRN after intermittent infusion Heparin Sodium (Beef Lung) 50 units 10/02/24 13:17 10/03/24 06:26 Heparin Flush 50 Units/5 Ml Syringe IV PUSH 50 units PRN PRN Administration after blood draws Heparin Sodium (Porcine) 500 units 10/02/24 13:17 Heparin Sodium Lock Flush 500 Units/5 Ml Syringe IV PUSH PRN PRN see comments below Sodium Chloride 1,000 mls @ 125 mls/hr 10/02/24 14:50 10/03/24 00:43 Normal Saline Iv IV CONT 125 mls/hr .Q8H NEMESIO Administration Albumin Human 100 mls @ 60 mls/hr 10/02/24 18:00 10/03/24 05:33 Albutein IVPB 60 mls/hr Q6HR NEMESIO Administration Loperamide HCl 2 mg 10/03/24 10:18 10/03/24 13:51 Loperamide Hcl 2 Mg Capsule PO 2 mg PRN PRN Administration Diarrhea Metoprolol Succinate 25 mg 10/03/24 09:00 10/03/24 09:35 Metoprolol Succinate Ext Rel 25 Mg Tabcr PO 25 mg DAILY NEMESIO Administration Ondansetron HCl 4 mg 10/02/24 14:49 Ondansetron Inj 4 Mg/2 Ml Vial IV PUSH Q4H PRN Nausea Sodium Chloride 10 ml 10/02/24 14:00 12/19/24 06:22 Central Line Flush IV PUSH 10 ml Q8HR NEMESIO Administration Radiology Results: ITS Impressions Chest X-Ray 10/02/24 13:58 IMPRESSION: 1. Small bilateral pleural effusions with mild dependent compressive atelectasis in the lower lungs. 2. Indeterminate 1 cm nodular opacity left lower lung zone. Recommend chest CT for further evaluation. 3. Large hiatal hernia. Labs Labs: Laboratory Results - last 24 hr 10/02/24 10/03/24 10/03/24 15:22 06:18 07:19 WBC 8.5 RBC 2.72 L Hgb 8.6 L Hct 26.1 L MCV 96.0 MCH 31.6 MCHC 33.0 RDW 17.7 H Plt Count 168 MPV 10.2 Immature Gran % (Auto) 1.1 H Neut % (Auto) 81.9 H Lymph % (Auto) 7.8 L [place] % (Auto) 8.6 H Eos % (Auto) 0.6 Baso % (Auto) 0.0 L Lymph # (Auto) 0.66 L [place] # (Auto) 0.7 H Eos # (Auto) 0.1 Baso # (Auto) 0.0 Abs Immat Gran (auto) 0.09 H Absolute Neuts (auto) 7.0 H Absolute Nucleated RBC 0.000 Nucleated RBC % 0.0 Sodium 129 L Potassium 5.0 Chloride 104 Carbon Dioxide 16 L Anion Gap 9 BUN 59 H Creatinine 3.10 H Estim Creat Clear Calc 12 Estimated GFR 14 L Glucose 58 L* POC Capillary Glucose 63 L Calcium 7.8 L Total Bilirubin 1.7 H AST 292 H ALT 64 H Alkaline Phosphatase 405 H Total Protein 5.0 L Albumin 2.8 L Urine Color Dark yellow Urine Appearance Cloudy H Urine pH 5.0 Ur Specific [place] 1.015 Urine Protein 2+ H Urine Glucose (UA) Negative Urine Ketones Trace H Ur Blood (Man) 3+ H Urine Nitrate Negative Urine Bilirubin Negative Urine Urobilinogen 1.0 Leukocyte Esterase Rfl Trace H Urine RBC 51-100 H Urine WBC 0-5 Ur Squamous Epith Cells None seen Urine Bacteria None seen Urine Casts >20 Hyaline Casts Present 10/03/24 07:51 WBC RBC Hgb Hct MCV MCH MCHC RDW Plt Count MPV Immature Gran % (Auto) Neut % (Auto) Lymph % (Auto) [place] % (Auto) Eos % (Auto) Baso % (Auto) Lymph # (Auto) [place] # (Auto) Eos # (Auto) Baso # (Auto) Abs Immat Gran (auto) Absolute Neuts (auto) Absolute Nucleated RBC Nucleated RBC % Sodium Potassium Chloride Carbon Dioxide Anion Gap BUN Creatinine Estim Creat Clear Calc Estimated GFR Glucose POC Capillary Glucose 83 Calcium Total Bilirubin AST ALT Alkaline Phosphatase Total Protein Albumin Urine Color Urine Appearance Urine pH Ur Specific [place] Urine Protein Urine Glucose (UA) Urine Ketones Ur Blood (Man) Urine Nitrate Urine Bilirubin Urine Urobilinogen Leukocyte Esterase Rfl Urine RBC Urine WBC Ur Squamous Epith Cells Urine Bacteria Urine Casts Hyaline Casts
[2024-10-03 21:40] LABS: Glucose Point of Care 105 mg/dl (65-105)
[2024-10-03 22:00] VITALS: BP 115/64; PULSE 94; RESP 20; TEMP 36.5; O2SAT 98
[2024-10-04] MEDS: ACETAMINOPHEN 325 MG TABLET 650 MG PO (00:33)
[2024-10-04] MEDS: HYDROcodone/acetaminophen (*CRX) 5-325 MG TABLET 1 TAB PO (03:17)
[2024-10-04] MEDS: MORPHINE SULFATE (*CRX) 2 MG/ML INJ IV PUSH ×2 (04:00→12:40)
[2024-10-04] MEDS: CENTRAL LINE FLUSH 10 ML IV PUSH (05:42)
--- NOTE | 2024-10-04 05:43 | PC.NURSE ---
At 0230 pt family was called per pt request. Pt states she has increased weakness and states, God is going to take me soon. I can feel like he is. Can you please call my family to come here to be with me. I really need them by my side. Pt family arrived at 0345. Pt is resting comfortably in bed with no complaints after receiving morphine IVP.
[2024-10-04 06:00] VITALS: BP 80/55; PULSE 156; RESP 22; TEMP 36.5; O2SAT 98
[2024-10-04 08:35] VITALS: PULSE 140
--- NOTE | 2024-10-04 13:31 | P.DS_ITS ---
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 Please see H&P for details. Hospital Course: Patient was admitted for weakness. She has known metastatic colocn cancer and has decided to stop treatment. She was given IV fluids and albumin but these were stopped. She met with hospice and has decided to proceed with hospice care. She was placed on comfort measures. Due to her soft blood pressure and need for IV pain medications, she qualified for inpatient hospice. Patient was transferred to hospice care. Status at Discharge Cognitive/behavioral status at discharge: tenuous Time Spent with Patient Time attestation: Total time spent providing and/or coordinating discharge services: 32 minutes Time spent: Greater than 30 minutes Exam Narrative: AF 97.7 80/55 140 22 98% ra Gen - chronically ill appearing female in NARD Chest - distant BS. Port in the right upper chest CV - RRR S1/S2 Abd - Soft, protuberant and full - Mata secured Ext - 2+ bilateral pedal edema Psych - Nml mood and affect Skin - Warm and dry DS: Data Data Completed and Pending Labs on day of discharge: Labs from last 24 hours 10/03/24 20:32 POC Capillary Glucose 105 Discharge Plan Discharge Attending physician on discharge: Desmond Odonnell Discharging Clinician: Desmond Odonnell Anticipated Discharge Date/Time: 10/04/24 13:36 Patient Disposition: Hospice - Medical Facility Activity: as tolerated Diet: as tolerated Patient Language: Amharic Stand Alone Forms: General Discharge Information Discharge Medications: Discontinued atorvastatin 40 mg tablet 40 mg PO HS Eliquis 5 mg tablet 5 mg PO BID cyanocobalamin (vitamin B-12) [Vitamin B-12] 1,000 mcg Tablet 1,000 mcg PO DAILY metoprolol succinate 25 mg tablet extended release 24 hr 25 mg PO DAILY ferrous sulfate 325 mg (65 mg iron) Tablet,Delayed Release (Dr/Ec) 325 mg PO BID Qty: 60 0RF Date of admission: 10/02/24 14:50 Primary Care Provider: UNKNOWN,DOCTOR Admitting Provider: Yeny Bello Attending physician on admission: Yeny Bello Condition: Terminal Hospitalist MIPS Heart Failure (Exclusion) Patient has history of Heart Transplant or Left Ventricular Assistive Device?: No IF YES, STOP HERE Heart Failure (Qualifier) Patient has current or prior documentation of LVEF less than or equal to 40%, or mod/servere depressed LVSF?: No IF NO, STOP HERE
--- OUTSIDE RECORDS SUMMARY | 2024-10-12 00:32 | XMS_ITS | Encounter Summary ---
Author Organization [facility] Healthcare Address [address] [place] [address] Care Team Providers Care Reinsurance Claims Analyst Name Role Phone Jayjay Panchal MD Unavailable [phone] Jd Malagon DO Unavailable [phone] Hussain Powers MD Unavailable [phone] Chaov Gallardo MD PhD Unavailable No, Physician Primary Care Provider [phone] Encounter Details Date Type Department Care Team (Latest Contact Info) Description 09/23/2024 8:00 AM GATE KEEPER Clinical Support [facility] - Lab Collection [address] [facility] [place] [place] Floor [address] [place] [address] Metastatic colon cancer to liver (HCC); Malignant neoplasm of ascending colon (CMS/HCC) (HCC) Social History Tobacco Use Types Packs/Day Years Used Date Smoking Tobacco: Never Passive Smoke Exposure: Never Smokeless Tobacco: Never Social Connection and Isolat ion Panel [NHANES] Answer Date Recorded In a typical week, how many times do you talk on the phone with family, friends, or neighbors? More than three times a week 04/19/2022 How often do you get togethe r with friends or relatives? More than three times a week 04/19/2022 How often do you attend chur or lutheran services? More than 4 times per year 04/19/2022 Do you belong to any clubs o r organizations such as adventist groups, unions, fraternal or athletic groups, or school groups? Yes 04/19/2022 How often do you attend meet ings of the clubs or organizations you belong to? More than 4 times per year 04/19/2022 Are you , , di vorced, , never , or living with a partner? 04/19/2022 AUDIT-C Answer Date Recorded Q1: How often do you have a drink containing alc ohol? Monthly or less 07/04/2023 Q2: How many drinks containi ng alcohol do you have on a typical day when you are drinking? 1 or 2 07/04/2023 Q3: How often do you have si x or more drinks on one occasion? Never 07/04/2023 Overall Financial Resource Strain (CARDIA) Answe r Date Recorded How hard is it for you to pa y for the very basics like food, housing, medical care, and heating? Not hard at all 04/19/2022 Hunger Vital Sign Answer Date Recorded Within the past 12 months, y ou worried that your food would run out before you got the money to buy more. Never true 04/19/20 22 Within the past 12 months, t he food you bought just didn't last and you didn't have money to get more. Never true 04/19/2022 PRAPARE - Transportation Answer Date Re corded In the past 12 months, has l ack of transportation kept you from medical appointments or from getting medications? No 02/2022 In the past 12 months, has l ack of transportation kept you from meetings, work, or from getting things needed for daily living? No 04/19/2022 Housing Stability Vital Sign Answer Kameron e Recorded In the last 12 months, was t here a time when you were not able to pay the mortgage or rent on time? No 04/19/2022 In the last 12 months, how many places have you lived? 1 04/19/2022 In the last 12 months, was t here a time when you did not have a steady place to sleep or slept in a residential (including now)? No 04/19/2022 Personal Safety Answer Date Recorded Have you ever been in or are you currently in a harmful physical or emotional relationship or is someone making you feel afraid or unsafe? Denies 07/28/2023 Comments No Sex and Gender Information Value Date Recorded Sex Assigned at Not on file Legal Sex Female 11:56 AM CDT Gender Identity Not on file Sexual Orientation Not on file documented as of this encounter Plan of Treatment Not on file documented as of this encounter Procedures Procedure Name Priority Date/Time Associated Diagnosis Comments EGFR Routine 09/23/2024 8:20 AM GATE KEEPER Metastatic colon cancer to liver (HCC) CBC WITH AUTO DIFFERENTIAL Routine 09/23/2024 8:20 AM GATE KEEPER Metastatic colon cancer to liver (HCC) ACTH Routine 09/23/2024 8:20 AM GATE KEEPER Malignant neoplasm of ascending colon (CMS/HCC) (HCC) MANUAL DIFFERENTIAL Routine 09/23/2024 8 :20 AM GATE KEEPER Metastatic colon cancer to liver (HCC) T-HELPER CELLS (CD4) COUNT Routine 09/23/2024 8:20 AM GATE KEEPER Malignant neoplasm of ascending colon (CMS/HCC) (HCC) APTT Routine 09/23/2024 8:20 AM GATE KEEPER Malignant neoplasm of ascending colon (CMS/HCC) (HCC) PROTIME-INR Routine 09/23/2024 8:20 AM GATE KEEPER Malignant neoplasm of ascending colon (CMS/HCC) (HCC) URIC ACID Routine 09/23/2024 8:20 AM GATE KEEPER Malignant neoplasm of ascending colon (CMS/HCC) (HCC) T3, FREE Routine 09/23/2024 8:20 AM GATE KEEPER Malignant neoplasm of ascending colon (CMS/HCC) (HCC) TSH Routine 09/23/2024 8:20 AM GATE KEEPER Malignant neoplasm of ascending colon (CMS/HCC) (HCC) T4, FREE Routine 09/23/2024 8:20 AM GATE KEEPER Malignant neoplasm of ascending colon (CMS/HCC) (HCC) PHOSPHORUS Routine 09/23/2024 8:20 AM GATE KEEPER Malignant neoplasm of ascending colon (CMS/HCC) (HCC) MAGNESIUM Routine 09/23/2024 8:20 AM GATE KEEPER Malignant neoplasm of ascending colon (CMS/HCC) (HCC) LIPASE Routine 09/23/2024 8:20 AM GATE KEEPER Malignant neoplasm of ascending colon (CMS/HCC) (HCC) LACTATE DEHYDROGENASE Routine 09/23/2024 8:20 AM GATE KEEPER Malignant neoplasm of ascending colon (CMS/HCC) (HCC) BILIRUBIN, DIRECT Routine 09/23/2024 8:2 0 AM GATE KEEPER Malignant neoplasm of ascending colon (CMS/HCC) (HCC) AMYLASE Routine 09/23/2024 8:20 AM GATE KEEPER Malignant neoplasm of ascending colon (CMS/HCC) (HCC) COMPREHENSIVE METABOLIC PANEL Routine 09/23/2024 8:20 AM GATE KEEPER Metastatic colon cancer to liver (HCC) documented in this encounter Results * (ABNORMAL) eGFR (09/23/2024 8:20 AM GATE KEEPER) eGFR 29(L) >=60 mL/min/1. 73 m2 Comment: Interpretive Data Reference Interval Normal ?>/= 90 mL/min/1.73m2 Mildly decreased* ? 60 - 89 mL/min/1.73m2 Mildly to moderately decreased ?45 - 59 mL/min/1.73m2 Moderately to severely decreased ??30 - 44 mL/min/1.73m2 Severely decreased ?15 - 29 mL/min/1.73m2 Kidney Failure ?< 15 ??mL/min/1.73m2 *Relative to young adult level Estimated glomerular filtration rate is determined by the 2020 CKD-EPI equation recommended by the National Kidney Foundation (A Unifying Approach to GFR Estimation: Recommendations of the NKF-ASK Task Force on Reassessing the Inclusion of Race in Diagnosing Kidney Disease, JASN 2020). The CKD-EPI equation should not be used for patients with unstable renal function and has not been validated in children and those over 70. Current interpretive data was last reviewed 2021. Blood 09/23/2024 8:20 AM GATE KEEPER 09/23/2024 8:26 AM GATE KEEPER us Chavo Gallardo MD PhD LAB BLOOD ORDERABLES Fin al Result [facility] [place] [address] * (ABNORMAL) Manual Differential (09/23/2024 8:20 AM GATE KEEPER) Cells Counted 200 Comment:Testing performed by : [facility], [address] [place] [address] Neutrophil abs 8.6(H) 1.5 - 6.5 K/cumm CERNER BJ Comment:Testing performed by : [facility], [address] [place] [address] Lymphocyte abs 0.4(L) 0.8 - 3.3 K/cumm CERNER BJ Comment:Testing performed by : [facility], [address] [place] [address] Monocyte abs 0.4 0.2 - 0.8 K/cumm CERNER BJ Comment:Testing performed by : [facility], [address] [place] [address] Eosinophil abs 0.0 0.0 - 0.5 K/cumm [facility]ERNER BJ Comment:Testing performed by : [facility], [address] [place] [address] Basophil abs 0.0 0.0 - 0.1 K/cumm C[facility]ER BJ Comment:Testing performed by : [facility], [address] [place] [phone] Neutrophil pct 92.0 % [facility] Comment: Interpretive Data Percent cell count reference ranges are not reported, since discordance with absolute values may lead to misinterpretation of CBC data. Current Interpretive Data was last revised on 2018. Testing performed by: [facility], [address] [place] [phone] Lymphocyte pct 4.0 % [facility] Comment: Interpretive Data Percent cell count reference ranges are not reported, since discordance with absolute values may lead to misinterpretation of CBC data. Current Interpretive Data was last revised on 2018. Testing performed by: [facility], [address] [place] [phone] Monocyte pct 4.0 % [facility] Comment: Interpretive Data Percent cell count reference ranges are not reported, since discordance with absolute values may lead to misinterpretation of CBC data. Current Interpretive Data was last revised on 2018. Testing performed by: [facility], [address] [place] [phone] Eosinophil pct 0.0 % [facility] Comment: Interpretive Data Percent cell count reference ranges are not reported, since discordance with absolute values may lead to misinterpretation of CBC data. Current Interpretive Data was last revised on 2018. Testing performed by: [facility], [address] [place] [phone] Basophil pct 0.0 % [facility] Comment: Interpretive Data Percent cell count reference ranges are not reported, since discordance with absolute values may lead to misinterpretation of CBC data. Current Interpretive Data was last revised on 2018. Testing performed by: [facility], [address] [place] [phone] Myelocyte pct 1.0 % [facility] Comment:Testing performed by : [facility], [address] [place] [phone] Polychromasia 1+(A) [facility] Comment:Testing performed by : [facility], [address] [place] [phone] Anisocytosis 1+(A) [facility] Comment:Testing performed by : [facility], [address] [place], [place] [phone] Poikilocytosis 1+(A) [facility] Comment:Testing performed by : [facility], [address] [place], [place] [phone] Macrocytes 1+(A) [facility] Comment:Testing performed by : [facility], [address] [place], [place] [phone] Schistocytes 1+(A) [facility] Comment:Testing performed by : [facility], [address] [place], [place] [phone] Elliptocytes 1+(A) [facility] Comment:Testing performed by : [facility], [address] [place], [place] [phone] Acanthocytes 1+(A) [facility] Comment:Testing performed by : [facility], [address] [place] [phone] Echinocytes 1+(A) [facility] Comment:Testing performed by : [facility], [address] [place], [place] [phone] Teardrop cells 1+(A) [facility] Comment:Testing performed by : [facility], [address] [place], [place] [phone] Platelet estimate Adequate [facility] Comment:Testing performed by : [facility], [address] [place], [place] [phone] Giant platelets Present(A) [facility] Comment:Testing performed by : [facility], [address] [place], [place] [phone] Blood 09/23/2024 8:20 AM GATE KEEPER 09/23/2024 8:29 AM GATE KEEPER us Chavo Gallardo MD PhD LAB BLOOD ORDERABLES Fin al Result [facility] [place] [address] * (ABNORMAL) CBC with auto differential (09/23/2024 8:20 AM GATE KEEPER) WBC 9.4 3.8 - 9.9 K/cumm Comment:Testing performed by : [facility], [address] [place], [place] [phone] Hgb 10.0(L) 11.9 - 15.5 g/dL [facility] Comment:Testing performed by : [facility], [address] [place], [place] [phone] Hct 30.7(L) 35.6 - 45.5 % [facility] Comment:Testing performed by : [facility], [address] [place], [place] [phone] Plt 244 150 - 400 K/cumm [facility] Comment:Testing performed by : [facility], [address] [place], [place] [phone] MPV 8.3 6.8 - 10.4 fL [facility] Comment:Testing performed by : [facility], [address] [place] [address] RBC 3.21(L) 3.90 - 5.20 M/cumm [facility] Comment:Testing performed by : [facility], [address] [place] [address] MCV 95.7 81.3 - 96.4 fL [facility] Comment:Testing performed by : [facility], [address] [place] [address] MCH 31.3 27.1 - 33.3 pg [facility] Comment:Testing performed by : [facility], [address] [place] [address] MCHC 32.6 32.3 - 35.7 g/dL [facility] Comment:Testing performed by : [facility], [address] [place] [address] RDW CV 16.3(H) 11.1 - 14.9 % [facility] Comment:Testing performed by : [facility], [address] [place] [address] NRBC abs 0.00 0.00 - 0.01 K/cumm [facility] Comment:Testing performed by : [facility], [address] [place] [phone] Blood 09/23/2024 8:20 AM GATE KEEPER 09/23/2024 8:29 AM GATE KEEPER us Chavo Gallardo MD PhD LAB BLOOD ORDERABLES Héctor josep Result - Final [facility] Department [place] [address] * (ABNORMAL) Comprehensive metabolic panel (09/23/2024 8:20 AM GATE KEEPER) Sodium 137 135 - 145 mmol/L Potassium, pl 4.4 3.3 - 4.9 mmol/L [facility] Chloride 105 97 - 110 mmol/L [facility] CO2 23 22 - 32 mmol/L [facility] Anion gap 9 2 - 15 mmol/L [facility] BUN 28(H) 6 - 25 mg/dL [facility] Creatinine 1.68(H) 0.60 - 1.10 mg/dL [facility] Glucose 106 70 - 199 mg/dL [facility] Comment: Interpretive Data Fasting glucose >/= 126 mg/dl is diagnostic for diabetes. ?? Fasting is defined as no caloric intake for at least 8 hours. Fasting glucose between 100 mg/dl to 125 mg/dl is diagnostic of prediabetes. In a patient with classic symptoms of hyperglycemia or hyperglycemic crisis, a random glucose >/= 200 mg/dl is diagnostic for diabetes. In the absence of unequivocal hyperglycemia, results should be confirmed by repeat testing. The classification and Diagnosis of Diabetes Diabetes Care 202; 46: S19-S40. Current interpretive data was last revised 2022. Calcium 8.5 8.5 - 10.3 mg/dL [facility] Bilirubin, total 1.3(H) 0.1 - 1.2 mg/dL [facility] Protein, pl 5.4(L) 6.5 - 8.5 g/dL [facility] Albumin 2.9(L) 3.5 - 5.0 g/dL [facility] Alk phos 481(H) 40 - 130 Units/L [facility] ALT 65(H) 7 - 45 Units/L [facility] AST 311(H) 10 - 45 Units/L [facility] Blood 09/23/2024 8:20 AM GATE KEEPER 09/23/2024 8:26 AM GATE KEEPER Chavo Gallardo MD PhD LAB BLOOD ORDERABLES Fin al Result Performing Organization Address [facility] Co de Phone Number [facility] [place] [address] * Phosphorus (09/23/2024 8:20 AM GATE KEEPER) Phosphorus, pl 3.2 2.3 - 4.5 mg/dL Blood 09/23/2024 8:20 AM GATE KEEPER 09/23/2024 8:26 AM GATE KEEPER Chavo Gallardo MD PhD LAB BLOOD ORDERABLES Fin al Result Performing Organization Address [facility] de Phone Number [facility] [place] [address] * Magnesium (09/23/2024 8:20 AM GATE KEEPER) Magnesium 2.3 1.4 - 2.5 mg/dL Blood 09/23/2024 8:20 AM GATE KEEPER 09/23/2024 8:26 AM GATE KEEPER Chavo Gallardo MD PhD LAB BLOOD ORDERABLES Fin al Result Performing Organization Address [facility] de Phone Number [facility] [place] [address] * (ABNORMAL) Bilirubin, direct (09/23/2024 8:20 AM GATE KEEPER) Bilirubin, direct 0.8(H) 0.1 - 0.3 mg/dL Blood 09/23/2024 8:20 AM GATE KEEPER 09/23/2024 8:26 AM GATE KEEPER us Chavo Gallardo MD PhD LAB BLOOD ORDERABLES Fin al Result Performing Organization Address [facility] Co de Phone Number [facility] [place] [address] * (ABNORMAL) TSH (09/23/2024 8:20 AM GATE KEEPER) Thyroid Stimulating Hormone 6.57(H) 0.30 - 4.20 mcIUnit/mL Blood 09/23/2024 8:20 AM GATE KEEPER 09/23/2024 8:26 AM GATE KEEPER Chavo Gallardo MD PhD LAB BLOOD ORDERABLES Fin al Result Performing Organization Address [facility] de Phone Number [facility] Department [place] [address] * (ABNORMAL) T3, free (09/23/2024 8:20 AM GATE KEEPER) Free T3 1.2(L) 2.0 - 4.4 pg/mL Blood 09/23/2024 8:20 AM GATE KEEPER 09/23/2024 8:26 AM GATE KEEPER Chavo Gallardo MD PhD LAB BLOOD ORDERABLES Fin al Result Performing Organization Address [facility] de Phone Number [facility] [place] [address] * T4, free (09/23/2024 8:20 AM GATE KEEPER) Free T4 1.23 0.90 - 1.70 ng/dL Blood 09/23/2024 8:20 AM GATE KEEPER 09/23/2024 8:26 AM GATE KEEPER Chavo Gallardo MD PhD LAB BLOOD ORDERABLES Fin al Result Performing Organization Address [facility] Co de Phone Number [facility] [place] [address] * ACTH (09/23/2024 8:20 AM GATE KEEPER) ACTH 15.4 7.0 - 63.0 pg/mL Blood 09/23/2024 8:20 AM GATE KEEPER 09/23/2024 9:28 AM GATE KEEPER Chavo Gallardo MD PhD LAB BLOOD ORDERABLES Fin al Result Performing Organization Address [facility] de Phone Number [facility] [place] [address] * (ABNORMAL) Protime-INR (09/23/2024 8:20 AM GATE KEEPER) Pathologist [facility] PT 20.1(H) 9.7 - 13.0 sec INR 1.84(H) 0.90 - 1.20 [facility] Comment: Interpretive data Oral anticoagulant therapeutic ranges: Venous thromboembolism prophylaxis or treatment: 2.0-3.0 CARDIOLOGY Standard range: 2.0-3.0 High-intensity range: 2.5-3.5 Refer to indication-specific guidelines for appropriate target ranges for prosthetic heart valve replacement. Current interpretive data was last revised on 2019. Blood 09/23/2024 8:20 AM GATE KEEPER 09/23/2024 9:01 AM GATE KEEPER Chavo Gallardo MD PhD LAB BLOOD ORDERABLES Fin al Result Performing Organization Address [facility] Co de Phone Number [facility] [place] [address] * (ABNORMAL) aPTT (09/23/2024 8:20 AM GATE KEEPER) aPTT 27(L) 28 - 38 sec Comment: Interpretive Data Heparin therapeutic range: 66.0 - 100.0 seconds. Range based on correlation with therapeutic heparin activity range of 0.3 - 0.7 Units/mL. Current interpretive data was last revised on 2023. Blood 09/23/2024 8:20 AM GATE KEEPER 09/23/2024 9:01 AM GATE KEEPER Chavo Gallardo MD PhD LAB BLOOD ORDERABLES Fin al Result Performing Organization Address [facility] de Phone Number [facility] [place] [address] * (ABNORMAL) Uric acid (09/23/2024 8:20 AM GATE KEEPER) Pathologist [facility] Uric acid 14.1(H) 2.5 - 7.0 mg/dL Blood 09/23/2024 8:20 AM GATE KEEPER 09/23/2024 8:26 AM GATE KEEPER Chavo Gallardo MD PhD LAB BLOOD ORDERABLES Fin al Result Performing Organization Address [facility] de Phone Number [facility] [place] [address] * (ABNORMAL) T-helper cells (CD4) count (09/23/2024 8:20 AM GATE KEEPER) Pathologist [facility] CD4 pct 58 31 - 64 % CD4 Absolute 330(L) 365 - 1,294 cells/mcL [facility] Blood 09/23/2024 8:20 AM GATE KEEPER 09/23/2024 9:29 AM GATE KEEPER Chavo Gallardo MD PhD LAB BLOOD ORDERABLES Fin al Result Performing Organization Address [facility] de Phone Number [facility] [place] [address] * Amylase (09/23/2024 8:20 AM GATE KEEPER) Pathologist [facility] Amylase 32 30 - 99 Units/L Blood 09/23/2024 8:20 AM GATE KEEPER 09/23/2024 8:26 AM GATE KEEPER Chavo Gallardo MD PhD LAB BLOOD ORDERABLES Fin al Result Performing Organization Address [facility] de Phone Number [facility] [place] [address] * (ABNORMAL) Lactate dehydrogenase (LD) (09/23/2024 8:20 AM GATE KEEPER) Lactate dehydrogenase (LDH) 3,300(H) 100 - 250 Units/L Lactate dehydrogenase (LDH) 3,300(H) 100 - 250 Units/L [facility] Blood 09/23/2024 8:20 AM GATE KEEPER 09/23/2024 8:26 AM GATE KEEPER Chavo Gallardo MD PhD LAB BLOOD ORDERABLES Héctor josep Result - Final Performing Organization Address [facility] Co de Phone Number [facility] [place] [address] * Lipase (09/23/2024 8:20 AM GATE KEEPER) Lipase 15 10 - 99 Units/L Blood 09/23/2024 8:20 AM GATE KEEPER 09/23/2024 8:26 AM GATE KEEPER Chavo Gallardo MD PhD LAB BLOOD ORDERABLES Fin al Result Performing Organization Address [facility] de Phone Number [facility] [place] [address] documented in this encounter Visit Diagnoses Diagnosis Metastatic colon cancer to liver (HCC) Malignant neoplasm of ascending colon (CMS/HCC) (HCC) Malignant neoplasm of ascending colon documented in this encounter Orders Lab Orders Without Results Count Last Ordered D ate First Ordered Date ONCBCN STUDY LAB 1 1 09/23/2024 Appointment Requests Count Last Ordered Date Fi rst Ordered Date ONCBCN LAB APPOINTMENT 1 09/23/2024 documented in this encounter Care Teams Reinsurance Claims Analyst Relationship Specialty Start Date End Date No, Physician PCP - General 06/03/24 Jayjay Panchal MD [address] [facility] [phone] [place] [address] Surgeon Colon and Rectal Surgery 06/02/23 Jd Malagon DO [address] [facility] [address] [place] [address] Referring Physician Surgery 06/02/23 Hussain Powers MD [address] [facility] [address] [place] [address] [facility] Gastroenterology 06/02/23 Chavo Gallardo MD PhD [address] [facility] [address] [place] [address] Medical Oncologist/Maintenance Instructor Medical Oncology 07/25/23 documented as of this encounter
== END 2024-10-04 14:34 | disposition hospice, inpatient (51) | DRG 436 ==
LOC: ANHED 14:39 → ANH3MEDSUR 15:37
PROVIDERS: Student in an Organized Health Care Education/Training Program; Admitting Provider Hospitalist; Emergency Provider Family Medicine; Visit Provider Internal Medicine
DX: C78.7 Secondary malignant neoplasm of liver and intrahepatic bile duct (principal); C78.00 Secondary malignant neoplasm of unspecified lung; N17.9 Acute kidney failure, unspecified; I10 Essential (primary) hypertension; E78.5 Hyperlipidemia, unspecified; Z96.653 Presence of artificial knee joint, bilateral; Z86.711 Personal history of pulmonary embolism; Z86.73 Personal history of transient ischemic attack (TIA), and cerebral infarction without residual deficits; Z79.01 Long term (current) use of anticoagulants; Z85.038 Personal history of other malignant neoplasm of large intestine; Z51.5 Encounter for palliative care
CPT/HCPCS: 36415; 71046; 80053; 81001; 82948; 85025; 93005; 96361; 96374; 99285; A9270; J1642; J2270; J7030; P9047

== ENCOUNTER 2024-10-04 14:35 | HOS | payer OTHER, MEDICARE, BC, SELFPAY ==
[2024-10-04] MEDS: MORPHINE SULFATE (*CRX) 2 MG/ML INJ IV PUSH ×2 (20:25→23:05)
[2024-10-04] MEDS: LORazepam INJ (*CRX) 2 MG/ML VIAL 1 MG IV PUSH ×2 (21:14→23:05)
[2024-10-04 21:25] VITALS: BP 70/46; PULSE 84; RESP 20; O2SAT 95
[2024-10-04] MEDS: CENTRAL LINE FLUSH 10 ML IV PUSH (23:06)
[2024-10-05] MEDS: HYOSCYAMINE SULFATE 0.125 MG TABLET SUBLINGUAL (00:12)
[2024-10-05 00:14] VITALS: O2SAT 65
--- NOTE | 2024-10-05 01:53 | PC.NURSE ---
pt at 0045
--- NOTE | 2024-10-05 06:36 | PM.SD2 ---
Same Day Admit/Disch: HPI History of Present Illness Chief complaint: Metastatic colon cancer - end of life Narrative: Leisa Sanchez is a 89 year old female with metastatic cancer admitted for hospice/comfort care. Patient passed overnight. [facility] Past Medical History Medical History (Updated 10/02/24 @ 23:04 by Marianna Arzola APRN) Hyperlipidemia Iron deficiency anemia Colon cancer metastasized to liver Adenocarcinoma of cecum Anemia Chronic anticoagulation Hypertension Pulmonary embolism (06/26/20) June 2020 and April 2022. 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 Code status: Full code. Smoking status: Never smoker Second hand tobacco smoke exposure: No Alcohol intake: never Substance use: never Do You Feel Safe in your Home?: Yes Lack of Transportation: YES Lack of Food: Never True Current Housing: I Have Housing Concerned About Future Housing: No Difficulty Paying Gas/Electric Bills: No Difficulty Paying for Meds: No Currently Unemployed: No Education: High School Diploma/GED Difficulty w/ Childcare or Family Care: No Spiritual care concerns: No Review of Systems Review of Systems ROS unobtainable: Yes unobtainable due to medical condition Exam Narrative: Patient had passed prior to being able to see patient DS: Summary Hospital Course Reason for hospitalization: Hospice Hospital Course: Patient was admitted and had Ativan and Morphine available for pain. Pain increased overnight and a Morphine drip ordered but patient passed before the drip could be set up. Family was at bedside. Status at Discharge Cognitive/behavioral status at discharge: Time Spent with Patient Time attestation: Total time spent providing and/or coordinating discharge services:10 minutes Time spent: Less than 30 minutes DS: Admitting Diagnosis Discharge Date 10/05/24 Admitting Diagnosis hospcie Discharge Plan Discharge Patient Disposition: Patient Language: Belarusian Date of admission: 10/04/24 14:35 Primary Care Provider: UNKNOWN,DOCTOR Admitting Provider: Desmond Odonnell Attending physician on admission: Desmond Odonnell Condition: Hospitalist MIPS Advance Care Plan I have confirmed that the patient's Advanced Care Plan is present, code status is documented, or surrogate decision maker is listed in patient medical record.: Yes Medication Reconciliation I have utilized all available resources to obtain, update and review the patients current medications (includes all prescriptions, OTC, herbals, cannabis, and nutritional supplements).: Yes Heart Failure (Exclusion) Patient has history of Heart Transplant or Left Ventricular Assistive Device?: No IF YES, STOP HERE Heart Failure (Qualifier) Patient has current or prior documentation of LVEF less than or equal to 40%, or mod/servere depressed LVSF?: No IF NO, STOP HERE
--- NOTE | 2024-10-05 06:40 | PM.DDS ---
Discharge Summary Date and Time Date of : 10/05/24 Time of : 00:45 Provider Pronounced By: 2 RNs Name of First RN That Pronounced: Genna Hanna Name of Second RN That Pronounced: Lynn Alvarez Probable Cause of Probable Cause of : Metastatic cancer Summary Hospital Course: Patient was admitted to hospice care. She had Ativan and Morphine available for comfort. Pain increased overnight so a Morphine drip was ordered but patient passed a short time later prior to the drip being set up. Family was at bedside. Additional Data Confirmation of as documented by pronouncing clinician: Palpable Pulses, Response to Stimuli, Heart Tones and Breath Sounds Name of Provider Notified: Estrella Muhammad DO Time Provider Notified: 01:00 Provider Requests Autopsy: No Family Requests Autopsy: No Warranty Administrator Notified: Yes Date [facility] Notified of : 10/05/24 Time [facility] Notified of : 01:03
== END 2024-10-05 02:10 | disposition expired | DRG 951 ==
PROVIDERS: Admitting Provider Internal Medicine; Visit Provider Internal Medicine
DX: Z51.5 Encounter for palliative care (principal); C18.0 Malignant neoplasm of cecum; C78.7 Secondary malignant neoplasm of liver and intrahepatic bile duct
CPT/HCPCS: A9270; J2060; J2270